=== PATIENT | female | born 1950 | race Hispanic/Latino ===

== ENCOUNTER → 2018-08-28 | Outpatient (CLI) | payer OTHER | END | disposition home or self-care (01) | LOC: RAH 08:34 | PROVIDERS: ATTEND Family Medicine | DX: Z12.31 Encounter for screening mammogram for malignant neoplasm of breast (principal); N64.89 Other specified disorders of breast | CPT/HCPCS: 77067 ==

== ENCOUNTER → 2018-10-01 | Outpatient (CLI) | payer OTHER | END | disposition home or self-care (01) | LOC: RAH 08:41 | PROVIDERS: ATTEND Family Medicine | DX: R92.2 Inconclusive mammogram (principal) | CPT/HCPCS: 76641 ==

== ENCOUNTER → 2018-11-04 | Outpatient (CLI) | payer OTHER | END | disposition home or self-care (01) | LOC: SHCH 08:28 | PROVIDERS: ATTEND Internal Medicine Cardiovascular Disease | DX: I06.1 Rheumatic aortic insufficiency (principal); I50.22 Chronic systolic (congestive) heart failure; Z95.2 Presence of prosthetic heart valve | CPT/HCPCS: 93306 ==

== ENCOUNTER → 2020-11-10 | Outpatient (CLI) | payer OTHER | END | disposition home or self-care (01) | LOC: RAH 14:36 | PROVIDERS: ATTEND Family Medicine | DX: Z12.31 Encounter for screening mammogram for malignant neoplasm of breast (principal); N64.89 Other specified disorders of breast | CPT/HCPCS: 77067 ==

== ENCOUNTER → 2021-10-09 | Outpatient (CLI) | payer OTHER ==
[2021-10-09 12:47] LABS: CREATININE 0.9 mg/dL (0.5-1.5)
== END | disposition home or self-care (01) ==
LOC: LAB 10-08 11:40
PROVIDERS: ATTEND Family Medicine
DX: N63.42 Unspecified lump in left breast, subareolar (principal)
CPT/HCPCS: 36415; 82565; 84520

== ENCOUNTER → 2021-10-16 | Outpatient (CLI) | payer OTHER ==
[~2021-10-16] MED LIST: GADOTERATE MEGLUMINE 10 MMOL/20 ML VIAL IV ONE
== END | disposition home or self-care (01) ==
LOC: RAH 13:49
PROVIDERS: ATTEND Family Medicine
DX: N63.42 Unspecified lump in left breast, subareolar (principal); H70.812 Postauricular fistula, left ear
CPT/HCPCS: 77049; A9575

== ENCOUNTER → 2021-11-26 | Outpatient (CLI) | payer OTHER ==
[2021-11-26 12:28] LABS: INR 1.03 (0.85-1.15); PROTHROMBIN TIME 11.2 SEC (9.6-11.6)
[2021-11-26 12:29] LABS: PARTIAL THROMBOPLASTIN TIME 26.5 SEC (26.3-35.5)
== END | disposition home or self-care (01) ==
LOC: LAB 10:31
PROVIDERS: ATTEND Family Medicine
DX: N63.20 Unspecified lump in the left breast, unspecified quadrant (principal); I65.23 Occlusion and stenosis of bilateral carotid arteries
CPT/HCPCS: 36415; 85610; 85730

== ENCOUNTER → 2022-01-16 | Outpatient (CLI) | payer OTHER ==
[~2022-01-16] MED LIST changes: -GADOTERATE MEGLUMINE 10 MMOL/20 ML VIAL IV ONE; +LIDOCAINE HCL-MPF 2% 5ML VIAL ONE
[2022-01-16 08:34] LABS: INR 1.09 (0.85-1.15); PROTHROMBIN TIME 11.8 SEC (9.6-11.6)
[2022-01-16 08:35] LABS: PARTIAL THROMBOPLASTIN TIME 27.1 SEC (26.3-35.5)
== END | disposition home or self-care (01) ==
LOC: RAH 07:43
PROVIDERS: ATTEND Family Medicine
DX: C50.512 Malignant neoplasm of lower-outer quadrant of left female breast (principal); Z79.01 Long term (current) use of anticoagulants
CPT/HCPCS: 19083; 77065; 85610; 85730; 36415; 88305; 88342; 88341; J3490; A4215 ×3

== ENCOUNTER 2022-02-21 07:55 | Day surgery (SDC) | payer OTHER ==
[2022-02-18 13:51] LABS: BASOPHILS % (AUTO) 0.5 % (0.0-5.0); EOSINOPHILS % (AUTO) 1.4 % (0.0-8.0); HEMATOCRIT 38.9 % (36-48); LYMPHOCYTES % (AUTO) 16.1 % (21.0-51.0); MEAN CORPUSCULAR HEMOGLOBIN 28.9 pg (27.0-33.0); MEAN CORPUSCULAR HGB CONC 33.2 g/dL (32.0-36.0); MEAN CORPUSCULAR VOLUME 87.2 fL (79-99); MONOCYTES % (AUTO) 7.1 % (3.0-13.0); NEUTROPHILS % (AUTO) 74.4 % (40.0-77.0); PLATELET COUNT (AUTO) 163 K/uL (130-400); RED BLOOD CELL COUNT(AUTO) 4.46 MIL/uL (4.00-5.50); WHITE BLOOD COUNT (AUTO) 6.5 K/uL (4.8-10.8)
[2022-02-18 14:03] LABS: CREATININE 0.8 mg/dL (0.5-1.5); POTASSIUM 3.6 mmol/L (3.5-5.1)
[2022-02-18 14:15] LABS: APPEARANCE,URINE CLOUDY (CLEAR); BILIRUBIN,URINE NEGATIVE (NEGATIVE); COLOR,URINE YELLOW (YELLOW); GLUCOSE, URINE (UA) >=1000 mg/dL (NEGATIVE); KETONES,URINE NEGATIVE (NEGATIVE); LEUKOCYTE ESTERASE ,URINE 250 Leu/uL (NEGATIVE); NITRATE,URINE 2+ (NEGATIVE); OCCULT BLOOD,URINE LARGE (NEGATIVE); PROTEIN,URINE 20 mg/dL (NEGATIVE); UROBILINOGEN,URINE 0.2 mg/dL (0.2-1.0)
[2022-02-18 14:18] LABS: B-TYPE NATRIURETIC PEPTIDE 46 pg/mL (0-100)
[2022-02-18 14:20] LABS: PARTIAL THROMBOPLASTIN TIME 44.2 SEC (26.3-35.5)
[2022-02-18 14:20] LABS: BACTERIA,URINE MANY /HPF (None Seen); MUCUS,URINE RARE LPF (None Seen); RBC,URINE 51-100 /HPF (0-1); SQUAMOUS EPITHELIAL CELL,UR RARE /HPF (0-2); WBC,URINE 51-100 /HPF (0-1)
[2022-02-18 14:24] LABS: INR 3.77 (0.85-1.15); PROTHROMBIN TIME 38.1 SEC (9.6-11.6)
[2022-02-19 10:15] VITALS: BP 143/79
[2022-02-21] VITALS (15 sets, daily range): BP systolic 121–186; BP diastolic 52–76
[~2022-02-21] VITALS: Ht 162.6 cm; Wt 73.9 kg
[~2022-02-21 07:55] MED LIST changes: +ATOR40TA69 PO; -LIDOCAINE HCL-MPF 2% 5ML VIAL ONE; +LINA5TAB PO; +METF-444 PO; +METO-408 PO; +WARF-67 PO; +WARF4TAB72 PO
[2022-02-21 09:25] LABS: INR 2.8 (0.85-1.15); PROTHROMBIN TIME 28.8 SEC (9.6-11.6)
[2022-02-21 09:26] LABS: PARTIAL THROMBOPLASTIN TIME 41.1 SEC (26.3-35.5)
[2022-02-21] MEDS ORDERED: 0.9%NACL 1000ML 1,000 ML IV ONE (10:17)
[2022-02-21 14:38] LABS: INR 1.39 (0.85-1.15); PROTHROMBIN TIME 14.9 SEC (9.6-11.6)
[2022-02-21 14:40] LABS: PARTIAL THROMBOPLASTIN TIME 32.4 SEC (26.3-35.5)
[2022-02-21] MEDS ORDERED: NITROGLYCERIN 50MG VIAL ONE (15:51)
[2022-02-21] MEDS ORDERED: NICARDIPINE 25MG INJ IV ONE (15:51)
[2022-02-21] MEDS ORDERED: LIDOCAINE HCL 400MG/20ML VIAL ONE (15:52)
[2022-02-21] MEDS ORDERED: MIDAZOLAM HCL 1 MG/ML 2ML VIAL ONE (15:52)
[2022-02-21] MEDS ORDERED: IOHEXOL 350 MG/ML 100ML INFUS..BTL IV ONE (15:52)
[2022-02-21] MEDS ORDERED: FENTANYL CITRATE PF 50 MCG/1 ML 2ML VIAL ONE (15:52)
[2022-02-21] MEDS ORDERED: HEPARIN 10,000 UNIT/10ML (1,000 UNIT/ML) VIAL ONE (15:52)
[2022-02-21] MEDS ORDERED: IOHEXOL-350 50ML VIAL IV ONE (15:52)
[2022-02-21] MEDS ORDERED: 0.9% NACL 500ML IV.SOLN 500 ML IV SCH (17:30)
[2022-02-21] MEDS ORDERED: WARFARIN SODIUM 2 MG TAB PO SCH (19:30)
[2022-02-22] MEDS ORDERED: WARFARIN SODIUM 2 MG TAB PO SCH (16:00)
[2022-02-28] MEDS ORDERED: WARFARIN SODIUM 2 MG TAB PO SCH (09:00)
== END 2022-02-21 19:55 | disposition home or self-care (01) ==
LOC: DAH 07:55
PROVIDERS: ATTEND Internal Medicine Cardiovascular Disease
DX: R94.39 Abnormal result of other cardiovascular function study (principal); R06.09 Other forms of dyspnea; I20.9 Angina pectoris, unspecified; I25.2 Old myocardial infarction; E11.9 Type 2 diabetes mellitus without complications; E78.5 Hyperlipidemia, unspecified; Z98.890 Other specified postprocedural states; Z79.899 Other long term (current) drug therapy; Z79.01 Long term (current) use of anticoagulants
CPT/HCPCS: 80048; 83880; 85025; 85610 ×3; 85730 ×3; 87077; 87088; 87186; 81001; 36415 ×2; 71045; 93005; 93458; 86850; 86900; 86901; 86156; 82948 ×2; 86870; 86927; C1894 ×2; C1760; P9017; J3010; J3490 ×2; J7030 ×2; J2250; J1644; Q9967; A4215; A4222; A4221; A4663; A4216; A4606; A4223 ×3; 96360; 96361; 99156; 99157

== ENCOUNTER → 2022-10-17 | Outpatient (CLI) | payer OTHER | END | disposition home or self-care (01) | LOC: RAH 12:35 | PROVIDERS: ATTEND Internal Medicine Cardiovascular Disease | DX: I11.0 Hypertensive heart disease with heart failure (principal); I50.22 Chronic systolic (congestive) heart failure; I35.1 Nonrheumatic aortic (valve) insufficiency; E78.5 Hyperlipidemia, unspecified; E11.9 Type 2 diabetes mellitus without complications; Z95.2 Presence of prosthetic heart valve | CPT/HCPCS: 93306; 93356 ==

== ENCOUNTER → 2022-10-22 | Outpatient (CLI) | payer OTHER | END | disposition home or self-care (01) | LOC: LAB 11:25 | PROVIDERS: ATTEND Internal Medicine Cardiovascular Disease | DX: I50.42 Chronic combined systolic (congestive) and diastolic (congestive) heart failure (principal); E78.5 Hyperlipidemia, unspecified | CPT/HCPCS: 36415; 83880 ==

== ENCOUNTER 2024-04-09 17:36 | Inpatient (IN) | payer OTHER, MEDICARE ==
[~2024-04-09] VITALS: Ht 154.9 cm; Wt 64.6 kg
--- NOTE | 2024-04-09 18:06 | ERN ---
ED Note History of Present Illness Stated Complaint: CHEST PAIN Chief Complaint: Chest Pain Time Seen by MD: 17:55 Time Seen by Midlevel: 17:55 Dictation: The patient is a 73-year-old female with a history of mechanical valve on warfarin, breast cancer, diabetes, hypertension who presents to the emergency department with mid chest pain/epigastric pain onset 11:30 a.m. Patient reports pain to be constant associated with diaphoresis. Denies any nausea, vomiting, diarrhea, constipation, fevers. Allergies: Coded Allergies: No Known Drug Allergies (Unverified Allergy, Unknown, 02/20/22) Home Meds Reported Medications Warfarin Sodium (Warfarin Sodium) 4 Mg Tablet, 4 MG PO HS, TAB EVERY Friday02/20/22 Warfarin Sodium (Warfarin Sodium) 2 Mg Tablet, 2 MG PO HS, TAB EVERYDAY EXCEPT Friday02/20/22 Metformin HCl (Metformin HCl) 500 Mg Tablet, 500 MG PO DAILY, TAB 02/20/22 Linagliptin (Tradjenta) 5 Mg Tablet, 5 MG PO DAILY, TAB 02/20/22 Atorvastatin Calcium (LIPITOR) 40 Mg Tablet, 40 MG PO DAILY, TAB 02/20/22 Metoprolol Succinate (Metoprolol Succinate) 25 Mg Tab.er.24h, 25 MG PO DAILY, TAB 02/20/22 Past Medical History Past Medical History: Diabetes-Type II, High Cholesterol, Hypertension Surgical History: Other Surgical History Other: HEART VALVE, BILATERAL MASTECTOMY RN Note Reviewed/Agreed w/PFSH: Yes Review of System Dictation Constitutional: Negative for fever,chills, and weight loss Eyes: Negative for injury, pain,redness, and discharge ENT: Negative for injury,pain or swelling Cardiovascular: Negative for chest pain, palpitations, and edema Respiratory: Negative for shortness of breath, cough, and wheezing, Abdomen/GI: Negative for nausea, vomiting, diarrhea, and constipation positive for abdominal pain Back: Negative for injury and pain : Negative for injury, bleeding and discharge MS/Extremity: Negative for injury and deformity Skin: Negative for rash, and discoloration Neuro: Negative for headache, weakness, numbness, tingling, and seizure Psych: Negative for suicide ideation, homicidal ideation, and hallucinations Initial Vital Sign VS Vital Signs Date Time Temp Pulse Resp B/P (MAP) Pulse Ox O2 Delivery O2 Flow Rate FiO2 04/09/24 17:36 98.6 85 20 183/80 99 Room Air 0 04/09/24 21:43 21 Physical Exam Dictation Vital Signs reviewed General Appearance: Alert, oriented x 3, no acute distress, well developed, nourished. Head and Face: non-traumatic. Eyes: PERRL, pink conjunctivas, eyelid no trauma, anterior chamber with arcus senilis. Ears: Pinnas intact and no signs of trauma or erythema ear canals clear and no discharge TM no erythema Nose: No discharge, no bleeding. Oropharynx: Mouth normal, tongue pink. pharynx clear,no erythema, tonsils no exudates, no abscesses noted, mucous membrane moist Neck: Supple, non-tender, no thyromegaly, no masses, no JVD, no bruits Breast:Deferred Chest:No tenderness, no crepitus, no paradoxical movement, no retractions Lungs:Clear, well-ventilated, symmetric, no rales, no wheezing, no rhonchi, no stridor, good breath sounds bilaterally Heart: Regular rate, regular rhythm, no murmur, no gallops Vascular: no peripheral edema, Abdomen: Soft, positive bowel sounds, nondistended, no guarding, nontender, no rebound, no masses no hepatomegaly, no splenomegaly, no Hernandez's sign, no hernias. Rectal: Deferred Genital: Deferred Neurological: Normal speech, motor function intact, sensory function intact Musculoskeletal: Neck nontender, full range of motion, back nontender, full range of motion, Extremities: nontender, full range of motion Skin: Color pink, dry, no turgor, no rash, no lacerations, no abrasions, no contusions. Lymphatic: Deferred Results (Laboratory/Radiology) Laboratory/Radiology Laboratory Tests Test 04/10/24 06:47 04/10/24 07:10 04/10/24 11:11 04/10/24 14:10 Whole Blood Glucose 141 MG/DL (70-110) H 155 MG/DL (70-110) H White Blood Count 9.4 K/uL (4.8-10.8) Red Blood Count 3.72 MIL/uL (4.00-5.50) L Hemoglobin 10.7 g/dL (12.0-16.0) L Hematocrit 32.4 % (36-48) L Mean Corpuscular Volume 87.1 fL (79-99) Mean Corpuscular Hemoglobin 28.8 pg (27.0-33.0) Mean Corpuscular Hemoglobin Concent 33.0 g/dL (32.0-36.0) Red Cell Distribution Width 14.4 % (11.0-15.5) Platelet Count 171 K/uL (130-400) Mean Platelet Volume 11.7 fL (7.5-10.5) H Immature Granulocyte % (Auto) 0.4 % (0-1) Neutrophils (%) (Auto) 81.4 % (40.0-77.0) H Lymphocytes (%) (Auto) 11.4 % (21.0-51.0) L Monocytes (%) (Auto) 5.2 % (3.0-13.0) Eosinophils (%) (Auto) 1.2 % (0.0-8.0) Basophils (%) (Auto) 0.4 % (0.0-5.0) Neutrophils # (Auto) 7.6 K/uL (1.8-7.7) Lymphocytes # (Auto) 1.1 K/uL (1.0-4.8) Monocytes # (Auto) 0.5 K/uL (0.1-1.0) Eosinophils # (Auto) 0.11 K/uL (0.00-0.70) Basophils # (Auto) 0.04 K/uL (0.00-0.20) Absolute Immature Granulocyte (auto 0.04 K/uL (0-1) Nucleated Red Blood Cells 0.0 % (0.0-0.19) Activated Partial Thromboplast Time 39.6 SEC (26.3-35.5) H Sodium Level 147 mmol/L (136-145) H Potassium Level 3.0 mmol/L (3.5-5.1) *L Chloride Level 110 mmol/L (101-111) Carbon Dioxide Level 29 mmol/L (21-32) Blood Urea Nitrogen 8 mg/dL (7-18) Creatinine 0.9 mg/dL (0.5-1.0) Glomerular Filtration Rate Calc 68 mL/min (>90) Random Glucose 153 mg/dL (70-105) #H Total Calcium 7.9 mg/dL (8.5-10.1) L Phosphorus Level 2.9 mg/dL (2.5-4.9) Magnesium Level 1.50 mg/dL (1.80-2.40) L Total Bilirubin 0.8 mg/dL (0.2-1.0) # Aspartate Amino Transf (AST/SGOT) 67 U/L (10-37) H Alanine Aminotransferase (ALT/SGPT) 50 U/L (12-78) # Alkaline Phosphatase 114 U/L (50-136) Troponin I High Sensitivity 11 ng/L (4-50) Total Protein 6.1 g/dL (6.0-8.3) Albumin 3.2 g/dL (3.5-5.0) L Lipase 180 U/L (16-77) H 161 U/L (16-77) H Thyroid Stimulating Hormone (TSH) 0.64 uIU/mL (0.36-3.74) Test 04/10/24 16:25 04/10/24 20:19 04/11/24 02:14 04/11/24 06:33 Whole Blood Glucose 151 MG/DL (70-110) H 156 MG/DL (70-110) H Activated Partial Thromboplast Time 114.2 SEC (26.3-35.5) 110.6 SEC (26.3-35.5) *H Magnesium Level 2.30 mg/dL (1.80-2.40) White Blood Count 7.2 K/uL (4.8-10.8) Red Blood Count 3.85 MIL/uL (4.00-5.50) L Hemoglobin 11.4 g/dL (12.0-16.0) L Hematocrit 33.6 % (36-48) L Mean Corpuscular Volume 87.3 fL (79-99) Mean Corpuscular Hemoglobin 29.6 pg (27.0-33.0) Mean Corpuscular Hemoglobin Concent 33.9 g/dL (32.0-36.0) Red Cell Distribution Width 14.5 % (11.0-15.5) Platelet Count 161 K/uL (130-400) Mean Platelet Volume 11.2 fL (7.5-10.5) H Immature Granulocyte % (Auto) 0.3 % (0-1) Neutrophils (%) (Auto) 70.4 % (40.0-77.0) Lymphocytes (%) (Auto) 18.3 % (21.0-51.0) L Monocytes (%) (Auto) 6.3 % (3.0-13.0) Eosinophils (%) (Auto) 3.9 % (0.0-8.0) Basophils (%) (Auto) 0.8 % (0.0-5.0) Neutrophils # (Auto) 5.0 K/uL (1.8-7.7) Lymphocytes # (Auto) 1.3 K/uL (1.0-4.8) Monocytes # (Auto) 0.5 K/uL (0.1-1.0) Eosinophils # (Auto) 0.28 K/uL (0.00-0.70) Basophils # (Auto) 0.06 K/uL (0.00-0.20) Absolute Immature Granulocyte (auto 0.02 K/uL (0-1) Nucleated Red Blood Cells 0.0 % (0.0-0.19) Sodium Level 145 mmol/L (136-145) Potassium Level 4.0 mmol/L (3.5-5.1) Chloride Level 113 mmol/L (101-111) H Carbon Dioxide Level 26 mmol/L (21-32) Blood Urea Nitrogen 6 mg/dL (7-18) L Creatinine 0.9 mg/dL (0.5-1.0) Glomerular Filtration Rate Calc 68 mL/min (>90) Random Glucose 144 mg/dL (70-105) H Total Calcium 7.8 mg/dL (8.5-10.1) L Total Bilirubin 0.9 mg/dL (0.2-1.0) Aspartate Amino Transf (AST/SGOT) 35 U/L (10-37) Alanine Aminotransferase (ALT/SGPT) 37 U/L (12-78) # Alkaline Phosphatase 101 U/L (50-136) Total Protein 6.1 g/dL (6.0-8.3) Albumin 3.2 g/dL (3.5-5.0) L Lipase 128 U/L (16-77) H Test 04/11/24 08:07 04/11/24 10:55 04/11/24 14:00 04/11/24 15:22 Activated Partial Thromboplast Time 70.6 SEC (26.3-35.5) #H 66.1 SEC (26.3-35.5) H Whole Blood Glucose 145 MG/DL (70-110) H 151 MG/DL (70-110) H Prothrombin Time 20.4 SEC (9.6-11.6) H Prothromb Time International Ratio 1.95 (0.85-1.15) H Test 04/11/24 20:10 04/11/24 20:28 04/12/24 02:03 04/12/24 05:57 Whole Blood Glucose 156 MG/DL (70-110) H 147 MG/DL (70-110) H Activated Partial Thromboplast Time 55.7 SEC (26.3-35.5) H 36.2 SEC (26.3-35.5) #H White Blood Count 8.0 K/uL (4.8-10.8) Red Blood Count 3.82 MIL/uL (4.00-5.50) L Hemoglobin 11.2 g/dL (12.0-16.0) L Hematocrit 33.1 % (36-48) L Mean Corpuscular Volume 86.6 fL (79-99) Mean Corpuscular Hemoglobin 29.3 pg (27.0-33.0) Mean Corpuscular Hemoglobin Concent 33.8 g/dL (32.0-36.0) Red Cell Distribution Width 14.3 % (11.0-15.5) Platelet Count 159 K/uL (130-400) Mean Platelet Volume 11.2 fL (7.5-10.5) H Immature Granulocyte % (Auto) 0.2 % (0-1) Neutrophils (%) (Auto) 72.1 % (40.0-77.0) Lymphocytes (%) (Auto) 16.2 % (21.0-51.0) L Monocytes (%) (Auto) 6.7 % (3.0-13.0) Eosinophils (%) (Auto) 4.2 % (0.0-8.0) Basophils (%) (Auto) 0.6 % (0.0-5.0) Neutrophils # (Auto) 5.8 K/uL (1.8-7.7) Lymphocytes # (Auto) 1.3 K/uL (1.0-4.8) Monocytes # (Auto) 0.5 K/uL (0.1-1.0) Eosinophils # (Auto) 0.34 K/uL (0.00-0.70) Basophils # (Auto) 0.05 K/uL (0.00-0.20) Absolute Immature Granulocyte (auto 0.02 K/uL (0-1) Nucleated Red Blood Cells 0.0 % (0.0-0.19) Sodium Level 146 mmol/L (136-145) H Potassium Level 3.2 mmol/L (3.5-5.1) L Chloride Level 111 mmol/L (101-111) Carbon Dioxide Level 27 mmol/L (21-32) Blood Urea Nitrogen 6 mg/dL (7-18) L Creatinine 0.9 mg/dL (0.5-1.0) Glomerular Filtration Rate Calc 68 mL/min (>90) Random Glucose 135 mg/dL (70-105) H Total Calcium 7.9 mg/dL (8.5-10.1) L Total Bilirubin 1.0 mg/dL (0.2-1.0) Aspartate Amino Transf (AST/SGOT) 25 U/L (10-37) Alanine Aminotransferase (ALT/SGPT) 26 U/L (12-78) # Alkaline Phosphatase 86 U/L (50-136) Total Protein 6.1 g/dL (6.0-8.3) Albumin 3.0 g/dL (3.5-5.0) L Test 04/12/24 07:53 04/12/24 11:23 04/12/24 14:29 04/12/24 16:25 Prothrombin Time 17.5 SEC (9.6-11.6) H Prothromb Time International Ratio 1.64 (0.85-1.15) H Activated Partial Thromboplast Time 31.9 SEC (26.3-35.5) 42.9 SEC (26.3-35.5) #H Whole Blood Glucose 288 MG/DL (70-110) #H 189 MG/DL (70-110) H Test 04/12/24 19:43 04/12/24 20:17 Whole Blood Glucose 208 MG/DL (70-110) H Prothrombin Time 16.0 SEC (9.6-11.6) H Prothromb Time International Ratio 1.49 (0.85-1.15) H Activated Partial Thromboplast Time 48.7 SEC (26.3-35.5) H REASON: epigastric pain, elevated lfts ORDERING PHYSICIAN: YAZ BURNETTE PROCEDURE: ABDRUQLTD - US ABDOMINAL RUQ\LTD US ABDOMINAL RUQ\E\LTD HISTORY: epigastric pain, elevated lfts TECHNIQUE: US ABDOMINAL RUQ\E\LTD. FINDINGS: LIVER: The liver demonstrates normal echogenicity without focal lesions. GALLBLADDER: Small gallstones are seen. There is no evidence of gallbladder wall thickening. CBD: Measures up to 0.6cm. PANCREAS: Prominent main pancreatic duct measuring 4 mm. RIGHT KIDNEY: measures 11cm in length. No hydronephrosis or calculi. IMPRESSION: Cholelithiasis. Upper normal CBD. Prominent main pancreatic duct measuring 0.4 cm. REASON: CHEST PAIN ORDERING PHYSICIAN: FÁTIMA SIERRA MD PROCEDURE: CXR1VW - CHEST 1VW Exam Type: CHEST 1VW Clinical Information: CHEST PAIN Comparison: None Findings: Right MediPort catheter is seen in place. There is no pneumothorax. The lungs are clear of infiltrates. The heart is enlarged. Bony and soft tissue structures of the chest wall are unremarkable. IMPRESSION: Cardiomegaly. Clear lungs. Labs Reviewed?: Yes EKG: (+) rhythm (Sinus rhythm) EKG Comment: EKG 04/09/2024 1738 ventricular rate 71, regular rate and rhythm, normal sinus rhythm, no STEMI ED Course ED Course Orders Procedure Category Date Status Time Zosyn 3.375gm+Ns 50ml PHA 04/10/24 Complete (Zosyn 3.375gm+Ns 09:00 0.9%Nacl 50ml (Ns PHA 04/10/24 Complete 50ml) 09:00 General Surgery CONPHYSVC 04/10/24 Transmitted Consult 09:04 Initiate Npo ROSA 04/10/24 Complete Hypokalemia Sary 09:58 Potassium Chloride PHA 04/10/24 Complete 20meq/100ml ([place] 10:00 Notify Physician If CPOE 04/10/24 Transmitted There Is 09:58 Notify Md On The Next CPOE 04/10/24 Transmitted 09:58 Notify Md On The CPOE 04/10/24 Transmitted Next(Cont.) 09:58 Magnesium 2gm Premix PHA 04/10/24 In Process 50ml (Magnesium 2gm 10:00 Clear Liquid DIET 04/10/24 Complete Lunch Initiate Po ROSA 04/10/24 In Process Hypokalemia Protoc 10:11 Potassium Chloride PHA 04/10/24 In Process 20meq/100ml ([place] 10:30 Potassium Chl 10% PHA 04/10/24 In Process Elixir 20meq (Kcl 10% 10:30 Potassium Chloride PHA 04/10/24 In Process 20meq Er (K-Dur/Klor- 10:30 Cbc With Differential LAB 04/11/24 Complete 04:00 Cbc With Differential LAB 04/12/24 Complete 04:00 Cbc With Differential LAB 04/13/24 In Process 04:00 Comprehensive LAB 04/11/24 Complete Metabolic Panel 04:00 Comprehensive LAB 04/12/24 Complete Metabolic Panel 04:00 Comprehensive LAB 04/13/24 In Process Metabolic Panel 04:00 Initiate Heparin ROSA 04/10/24 In Process Treatment Pro 10:32 Partial LAB 04/10/24 Complete Thromboplastin Time 10:32 Heparin 25,000 PHA 04/10/24 In Process Units/250ml D5w 11:30 Heparin Protocol CPOE 04/10/24 Transmitted Monitoring 10:32 *Nursing CPOE 04/10/24 Transmitted Communication: 10:33 Change Admit CM 04/10/24 Transmitted Inpatient Status 11:42 Mrcp(Abdwo)Cholangiopancreatog MRI 04/10/24 Resulted 10:08 Partial LAB 04/10/24 Complete Thromboplastin Time 20:00 Partial LAB 04/11/24 Complete Thromboplastin Time 02:00 Partial LAB 04/11/24 Complete Thromboplastin Time 08:00 Partial LAB 04/11/24 Complete Thromboplastin Time 14:00 Partial LAB 04/11/24 Complete Thromboplastin Time 20:00 Partial LAB 04/12/24 Complete Thromboplastin Time 02:00 Partial LAB 04/12/24 Complete Thromboplastin Time 08:00 Partial LAB 04/12/24 Complete Thromboplastin Time 14:00 Magnesium LAB 04/10/24 Complete 19:44 Zosyn 3.375gm+Ns 50ml PHA 04/11/24 Complete (Zosyn 3.375gm+Ns 14:00 Prothrombin Time With LAB 04/11/24 Complete INR 14:00 Cardiology Consult CONPHYSVC 04/11/24 Transmitted 14:47 Pt And Ptt LAB 04/12/24 Complete 20:30 Heart Healthy Diet DIET 04/12/24 Transmitted Breakfast Prothrombin Time With LAB 04/12/24 Complete INR 07:53 *Nursing CPOE 04/12/24 Transmitted Communication: 13:19 Levofloxacin 500 PHA 04/12/24 Complete Mg/D5w 100 Ml 13:30 Levofloxacin 250 PHA 04/13/24 In Process Mg/D5w 50ml (Levaquin 14:00 Prothrombin Time With LAB 04/13/24 In Process INR 06:00 Npo After Midnight ROSA 04/12/24 Transmitted 17:11 *Nursing CPOE 04/12/24 Transmitted Communication: 17:11 *Nursing CPOE 04/12/24 Transmitted Communication: 17:11 Vital Signs Date Time Temp Pulse Resp B/P (MAP) Pulse Ox O2 Delivery O2 Flow Rate FiO2 04/13/24 03:47 98.2 75 19 136/67 99 Room Air 04/13/24 01:51 100 Room Air* 0 04/13/24 00:00 98.8 84 19 148/82 98 Room Air 04/12/24 20:00 98.4 92 19 138/65 97 Room Air 04/12/24 16:00 97.9 83 16 147/78 94 Room Air 04/12/24 12:00 98.8 89 16 132/61 98 Room Air 04/12/24 08:00 98.2 83 16 130/56 100 Room Air 04/12/24 07:50 100 Room Air* 0 04/12/24 03:24 98.4 76 16 132/58 99 Room Air 04/11/24 21:20 98 Room Air* 0 04/11/24 20:00 98.2 79 17 138/60 98 Room Air 04/11/24 16:00 98.6 72 16 136/67 97 Room Air 04/11/24 11:54 98.1 68 16 151/60 99 Room Air 04/11/24 08:00 98.2 85 16 144/79 99 Room Air 04/11/24 07:50 99 Room Air* 0 04/11/24 06:34 98.1 66 18 127/64 100 Room Air 04/11/24 05:00 64 18 145/64 96 Room Air 04/11/24 04:00 60 20 119/58 96 Room Air 04/11/24 03:00 71 20 141/67 96 Room Air 04/11/24 02:00 75 18 135/76 96 Room Air 04/11/24 00:00 70 18 132/70 96 Room Air 04/10/24 22:00 71 18 125/62 97 Room Air 04/10/24 20:00 98.8 69 18 135/61 96 Room Air 04/10/24 20:00 96 Room Air* 0 21 04/10/24 19:34 70 15 141/68 98 Room Air 04/10/24 19:00 70 15 141/68 98 Room Air 04/10/24 18:14 99.0 68 19 133/68 97 Room Air 04/10/24 08:24 98 Room Air* 0 21 04/10/24 07:11 72 18 135/57 98 Room Air 04/10/24 06:45 70 18 98 Room Air 04/10/24 06:30 78 18 97 Room Air 04/10/24 06:15 76 14 97 Room Air 04/10/24 06:00 98.2 76 11 151/74 100 Room Air 04/10/24 05:15 98.1 68 20 131/59 95 Room Air* 0 21 Medical Decision Making MDM MDM: The patient is a 73-year-old female with a history of mechanical valve on w arfarin, breast cancer, diabetes, hypertension who presents to the emergency department with mid chest pain/epigastric pain onset 11:30 a.m. Patient reports pain to be constant associated with diaphoresis. Denies any nausea, vomiting, diarrhea, constipation, fevers. CBC showed no leukocytosis, mild normocytic anemia, chemistry showed elevated blood glucose, negative troponin, slightly elevated AST, elevated lipase, negative triglycerides, patient with a INR of four. No active bleeding. Differential diagnosis: Electrolyte imbalance, ACS, cholecystitis, dehydration, gastritis, pancreatitis Comorbidities: Tests considered and not ordered secondary to shared decision making include: none Previous outside records reviewed: none Risk of complication and/or morbidity or mortality of patient management: The patient meets criteria for admission. Need for emergency major/minor surgery: No There are no social concerns with this patient. I independently interpreted the tests I ordered (labs, urinalysis, etc.). I discussed the case with the hospitalist for admission. I discussed the case with the following specialists: none. Historian: pateint. I independently interpreted imaging studies and EKGs that I ordered (US, CT, XR, EKG, etc.). External chart review: none. Medical management and examination interpretation discussions were had by me with other qualified healthcare professionals as indicated for the patient's care. DX & DISP Disposition: Inpatient Decision to Admit Date: Apr 09, 2024 Decision to Admit Time: 22:51 Departure Impression: Primary Impression: Acute pancreatitis Additional Impressions: Hyperglycemia, Elevated INR, Abdominal pain, Cholelithiasis Condition: Stable Referrals: NEHA MCMAHAN DO (PCP) I have reviewed the case, and I agree with, Diagnosis and Plan ATTESTATION BY PHYSICIAN I PERFORMED THE SUBSTANTIVE PORTION OF THE VISIT. I HAVE REVIEWED AND PERSONALLY MADE AND APPROVED THE MANAGEMENT PLAN THAT IS DOCUMENTED IN THE NOTE BY MYSELF FOR THE A PP. I ACKNOWLEDGED FOR RESPONSIBILITY FOR THE PATIENT'S MANAGEMENT PLAN. YAZ BURNETTE Apr 09, 2024 18:06 LINCOLN CAZARES MD Apr 13, 2024 04:44
--- NOTE | 2024-04-09 18:22 | EKG ---
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
--- NOTE | 2024-04-09 18:32 | HMCIMG ---
Exam Type: CHEST 1VW Clinical Information: CHEST PAIN Comparison: None Findings: Right MediPort catheter is seen in place. There is no pneumothorax. The lungs are clear of infiltrates. The heart is enlarged. Bony and soft tissue structures of the chest wall are unremarkable. IMPRESSION: Cardiomegaly. Clear lungs.
[2024-04-09 18:43] LABS: BASOPHILS # (AUTO) 0.05 K/uL (0.00-0.20); BASOPHILS % (AUTO) 0.5 % (0.0-5.0); EOSINOPHILS # (AUTO) 0.08 K/uL (0.00-0.70); EOSINOPHILS % (AUTO) 0.8 % (0.0-8.0); IMMATURE GRANULOCYTE ABSOLUTE 0.05 K/uL (0-1); LYMPHOCYTES # (AUTO) 0.8 K/uL (1.0-4.8); LYMPHOCYTES % (AUTO) 7.7 % (21.0-51.0); MEAN CORPUSCULAR HEMOGLOBIN 28.5 pg (27.0-33.0); MEAN CORPUSCULAR HGB CONC 32.8 g/dL (32.0-36.0); MONOCYTES # (AUTO) 0.4 K/uL (0.1-1.0); MONOCYTES % (AUTO) 3.7 % (3.0-13.0); NEUTROPHILS # (AUTO) 9.2 K/uL (1.8-7.7); NEUTROPHILS % (AUTO) 86.8 % (40.0-77.0); PLATELET COUNT (AUTO) 193 K/uL (130-400); RED BLOOD CELL COUNT(AUTO) 4.14 MIL/uL (4.00-5.50); RED CELL DISTRIBUTION WIDTH 14.3 % (11.0-15.5); WHITE BLOOD COUNT (AUTO) 10.5 K/uL (4.8-10.8)
[2024-04-09 18:52] LABS: POTASSIUM 3.7 mmol/L (3.5-5.1)
[2024-04-09 18:56] LABS: PARTIAL THROMBOPLASTIN TIME 38.2 SEC (26.3-35.5)
[2024-04-09 19:16] LABS: ALBUMIN 3.9 g/dL (3.5-5.0); B-TYPE NATRIURETIC PEPTIDE 131 pg/mL (0-100); BILIRUBIN,DIRECT 0.4 mg/dL (0.0-0.3); BILIRUBIN,TOTAL 1.3 mg/dL (0.2-1.0); TOTAL PROTEIN, SERUM 7.1 g/dL (6.0-8.3)
[2024-04-09 19:27] LABS: INR 4.09 (0.85-1.15); PROTHROMBIN TIME 39.8 SEC (9.6-11.6)
--- NOTE | 2024-04-09 21:13 | HMCIMG ---
US ABDOMINAL RUQ\E\LTD HISTORY: epigastric pain, elevated lfts TECHNIQUE: US ABDOMINAL RUQ\E\LTD. FINDINGS: LIVER: The liver demonstrates normal echogenicity without focal lesions. GALLBLADDER: Small gallstones are seen. There is no evidence of gallbladder wall thickening. CBD: Measures up to 0.6cm. PANCREAS: Prominent main pancreatic duct measuring 4 mm. RIGHT KIDNEY: measures 11cm in length. No hydronephrosis or calculi. IMPRESSION: Cholelithiasis. Upper normal CBD. Prominent main pancreatic duct measuring 0.4 cm.
[2024-04-09] MEDS: ASPIRIN 325MG TAB PO ONE (21:26)
[2024-04-09] MEDS: PANTOPrazole 40 MG/VIAL IVP ONE (21:26)
[2024-04-09] MEDS: NITROGLYCERIN 1GM OINT 1 INCH/1GM TD ONE (21:27)
[2024-04-09] MEDS: INSULIN humuLIN R 100 UNIT/ML 3ML IV ONE (21:29)
[2024-04-09] MEDS: 0.9%NACL 1000ML 1,000 ML IV SCH (23:30)
[2024-04-09] MEDS ORDERED: LACTULOSE 20 GM/30 ML UDCUP PO PRN (23:30)
[2024-04-09] MEDS ORDERED: hydrALAZine 20MG/ML VIAL IV PRN (23:30)
[2024-04-09] MEDS ORDERED: acetaMINOPHEN 650 MG SUPPOSITORY RC PRN (23:30)
[2024-04-09 23:59] LABS: APPEARANCE,URINE CLOUDY (CLEAR); BILIRUBIN,URINE NEGATIVE (NEGATIVE); COLOR,URINE YELLOW (YELLOW); GLUCOSE, URINE (UA) 300 mg/dL (NEGATIVE); KETONES,URINE NEGATIVE (NEGATIVE); LEUKOCYTE ESTERASE ,URINE 500 Leu/uL (NEGATIVE); NITRATE,URINE NEGATIVE (NEGATIVE); OCCULT BLOOD,URINE NEGATIVE (NEGATIVE); PH,URINE 6.5 (5.0-8.0); PROTEIN,URINE 20 mg/dL (NEGATIVE); UROBILINOGEN,URINE 3 mg/dL (0.2-1.0)
[2024-04-10] VITALS (11 sets, daily range): BP systolic 125–151; BP diastolic 57–74; PULSE 68–78; RESP 11–19; TEMP 98.2–98.9; O2SAT 96–98
[2024-04-10 00:02] LABS: ADD UA MICROSCOPIC YES
[2024-04-10 00:04] LABS: BACTERIA,URINE MANY /HPF (None Seen); MUCUS,URINE RARE LPF (None Seen); SQUAMOUS EPITHELIAL CELL,UR MOD /HPF (0-2); WBC,URINE 51-100 /HPF (0-1)
[2024-04-10 07:27] LABS: BASOPHILS # (AUTO) 0.04 K/uL (0.00-0.20); BASOPHILS % (AUTO) 0.4 % (0.0-5.0); EOSINOPHILS # (AUTO) 0.11 K/uL (0.00-0.70); EOSINOPHILS % (AUTO) 1.2 % (0.0-8.0); HEMATOCRIT 32.4 % (36-48); IMMATURE GRANULOCYTE ABSOLUTE 0.04 K/uL (0-1); LYMPHOCYTES # (AUTO) 1.1 K/uL (1.0-4.8); LYMPHOCYTES % (AUTO) 11.4 % (21.0-51.0); MEAN CORPUSCULAR HEMOGLOBIN 28.8 pg (27.0-33.0); MEAN CORPUSCULAR VOLUME 87.1 fL (79-99); MONOCYTES # (AUTO) 0.5 K/uL (0.1-1.0); MONOCYTES % (AUTO) 5.2 % (3.0-13.0); NEUTROPHILS # (AUTO) 7.6 K/uL (1.8-7.7); NEUTROPHILS % (AUTO) 81.4 % (40.0-77.0); PLATELET COUNT (AUTO) 171 K/uL (130-400); RED BLOOD CELL COUNT(AUTO) 3.72 MIL/uL (4.00-5.50); RED CELL DISTRIBUTION WIDTH 14.4 % (11.0-15.5); WHITE BLOOD COUNT (AUTO) 9.4 K/uL (4.8-10.8)
[2024-04-10] MEDS: INSULIN humuLIN R 100 UNIT/ML 3ML SQ SCH (07:30)
[2024-04-10 08:01] LABS: ALBUMIN 3.2 g/dL (3.5-5.0); BILIRUBIN,TOTAL 0.8 mg/dL (0.2-1.0); CREATININE 0.9 mg/dL (0.5-1.0); MAGNESIUM 1.5 mg/dL (1.80-2.40); PHOSPHORUS 2.9 mg/dL (2.5-4.9); THYROID STIMULATING HORMONE 0.64 uIU/mL (0.36-3.74); TOTAL PROTEIN, SERUM 6.1 g/dL (6.0-8.3)
[2024-04-10] MEDS ORDERED: 0.9%NACL 50ML IV SCH (09:00)
[2024-04-10] MEDS: ZOSYN 3.375GM +NS 50ML IVPB SCH (09:32)
[2024-04-10] MEDS ORDERED: PoTASSium chloRIDE 20MEQ/100ML 100 ML IV PRN ×2 (10:00→10:30)
--- NOTE | 2024-04-10 10:47 | HP ---
[facility] HISTORY & PHYSICAL Date Patient Seen: Apr 10, 2024 Time of Visit: 10:41 Supervising Physician: Dr. Juve Cooper Primary Care Physician: Dr. Kalli Navas- [facility] Outpatient Specialists: Jamie Shaver, Dr. Summers Inpatient Consults: Dr. Hays PROBLEM LIST: Acute abdominal pain secondary to below Acute cholelithiasis Acute pancreatitis secondary to biliary stones Acute transaminitis secondary to above Acute complicated cystitis Supra therapeutic INR Hypertension Hypokalemia Hyperglycemia Hypomagnesemia History of diabetes mellitus, hyperlipidemia, hypertension, Mechanical valve surgery, bilateral mastectomy HPI: This is a 73-year-old female with past medical history of mechanical valve surgeries on Coumadin, bilateral mastectomy, diabetes mellitus, hypertension, and hyperlipidemia who came to the hospital with complaint of abdominal pain. According to the patient, she has been having this symptom for two days. Her pain was described as dull rate 3/10, unrelieved with tylenol. She had no vomiting. She denies any diarrhea. In ED patient was found to have cholelithiasis with common bile duct mildly dilated. Liver function was elevated and she has elevated lipase as well. Her urine analysis with WBC of 50 to 100 very high leukocyte esterase and many bacteria. PAST MEDICAL HX: Diabetes mellitus mellitus Hyperlipidemia Hypertension PAST SURGICAL HX: Mechanical valve surgery Bilateral mastectomy SOCIAL HISTORY: Denies tobacco abuse Denies alcohol abuse Denies illicit drug use Coded Allergies: No Known Drug Allergies (Unverified Allergy, Unknown, 02/20/22) REVIEW OF SYSTEMS: General: No Fever, No Chills, No Night Sweats, No Fatigue, No Malaise, No Appetite HEENT: No Head Aches, No Visual Changes, No Eye Pain, No Ear Pain, No Dysphasia, No Sinus Congestion, No Post Nasal Drip, No Sore Throat Pulmonary: No Dyspnea; No Cough, No Pleuritic Chest Pain Cardiovascular: No: Chest Pain, Palpitations, Orthopnea, Paroxysmal Noc. Dyspnea, Edema, Lt Headedness Gastrointestinal: No: Nausea, Vomiting, yes Abdominal Pain,no Diarrhea, Constipation, Melena, Hematochezia Genitourinary: No Dysuria, No Frequency, No Incontinence, No Hematuria, No Retention Musculoskeletal: No: other, neck pain, shoulder pain, arm pain, back pain, hand pain, leg pain, foot pain Skin: No Urticaria, No Rash Neurological: No: Weakness, Numbness, Incoordination, Change in speech, Confusion, Seizures PHYSICAL EXAM: GENERAL: alert, weak, awake oriented x 3 HEENT: EOMI, Sclera non icteric, moist mucosa NECK: Supple, no JVD, trachea midline LUNGS: Clear breath sounds bilaterally. No wheezes HEART: Regular rate and rhythm. Normal S1 and S2, without murmurs ABD: Abdomen soft, tender to touch to right upper quadrant. Bowel sounds present EXT: No clubbing cyanosis or edema NEURO: Alert and oriented to person, follows commands Vital Signs (last 8hr) Date Time Temp Pulse Resp B/P (MAP) Pulse Ox O2 Delivery O2 Flow Rate FiO2 04/10/24 08:24 98 Room Air* 0 21 04/10/24 07:11 72 18 135/57 98 Room Air 04/10/24 06:45 70 18 98 Room Air 04/10/24 06:30 78 18 97 Room Air 04/10/24 06:15 76 14 97 Room Air 04/10/24 06:00 98.2 76 11 151/74 100 Room Air 04/10/24 05:15 98.1 68 20 131/59 95 Room Air* 0 21 LABS: Hematology Labs: Test 04/10/24 07:10 04/09/24 17:48 Range/Units White Blood Count 9.4 4.8-10.8 K/uL Red Blood Count 3.72 L 4.00-5.50 MIL/uL Hemoglobin 10.7 L 12.0-16.0 g/dL Hematocrit 32.4 L 36-48 % Mean Corpuscular Volume 87.1 79-99 fL Mean Corpuscular Hemoglobin 28.8 27.0-33.0 pg Mean Corpuscular Hemoglobin Concent 33.0 32.0-36.0 g/dL Red Cell Distribution Width 14.4 11.0-15.5 % Platelet Count 171 130-400 K/uL Mean Platelet Volume 11.7 H 7.5-10.5 fL Immature Granulocyte % (Auto) 0.4 0-1 % Neutrophils (%) (Auto) 81.4 H 40.0-77.0 % Lymphocytes (%) (Auto) 11.4 L 21.0-51.0 % Monocytes (%) (Auto) 5.2 3.0-13.0 % Eosinophils (%) (Auto) 1.2 0.0-8.0 % Basophils (%) (Auto) 0.4 0.0-5.0 % Neutrophils # (Auto) 7.6 1.8-7.7 K/uL Lymphocytes # (Auto) 1.1 1.0-4.8 K/uL Monocytes # (Auto) 0.5 0.1-1.0 K/uL Eosinophils # (Auto) 0.11 0.00-0.70 K/uL Basophils # (Auto) 0.04 0.00-0.20 K/uL Absolute Immature Granulocyte (auto 0.04 0-1 K/uL Nucleated Red Blood Cells 0.0 0.0-0.19 % White Cell Morphology Comment See comments Chemistry Labs: Test 04/10/24 07:10 04/09/24 17:48 Range/Units Sodium Level 147 H 136-145 mmol/L Potassium Level 3.0 *L 3.5-5.1 mmol/L Chloride Level 110 101-111 mmol/L Carbon Dioxide Level 29 21-32 mmol/L Blood Urea Nitrogen 8 7-18 mg/dL Creatinine 0.9 0.5-1.0 mg/dL Glomerular Filtration Rate Calc 68 >90 mL/min Random Glucose 153 #H 70-105 mg/dL Total Calcium 7.9 L 8.5-10.1 mg/dL Phosphorus Level 2.9 2.5-4.9 mg/dL Magnesium Level 1.50 L 1.80-2.40 mg/dL Total Bilirubin 0.8 # 0.2-1.0 mg/dL Aspartate Amino Transf (AST/SGOT) 67 H 10-37 U/L Alanine Aminotransferase (ALT/SGPT) 50 # 12-78 U/L Alkaline Phosphatase 114 50-136 U/L Troponin I High Sensitivity 11 4-50 ng/L Total Protein 6.1 6.0-8.3 g/dL Albumin 3.2 L 3.5-5.0 g/dL Lipase 180 H 16-77 U/L Thyroid Stimulating Hormone (TSH) 0.64 0.36-3.74 uIU/mL Direct Bilirubin 0.4 H 0.0-0.3 mg/dL Total Creatine Kinase 87 21-232 U/L B-Type Natriuretic Peptide 131 H 0-100 pg/mL Triglycerides Level 114 30-200 mg/dL Coagulation Labs: Test 04/09/24 17:48 Range/Units Prothrombin Time 39.8 *H 9.6-11.6 SEC Prothromb Time International Ratio 4.09 *H 0.85-1.15 Activated Partial Thromboplast Time 38.2 H 26.3-35.5 SEC DIAGNOSTICS / RADIOLOGY RESULTS: [ ] PLAN NEURO: Minimize central acting medications as possible. Maintain fall precautions, adequate lighting during the day PULMONARY: Supplemental 02 as needed. Maintain aspiration precautions at all times CARDIOVASCULAR: Follow hemodynamics. Vital signs per facility protocol Hold Coumadin start patient on heparin drip GI & NUTRITION: Continue with nutritional support. Continue stool softeners and laxatives as needed. Consult to surgery MRCP Clear liquid diet Trend lipase and liver function KIDNEYS & ELECTROLYTES: Strict monitoring of intake, output and overall fluid balance. Avoid nephrotoxic medications to the extent possible. Medications to be dosed according to renal function. Monitor electrolytes and replace as needed per protocol ENDOCRINE: Maintain blood glucose between 100-180 at all times. Hypoglycemia protocol in place INFECTIOUS DISEASE: Trend temperature, WBC and procalcitonin level Follow cultures, deescalate antibiotics as soon as possible. Panculture if new onset fever Zosyn for now Continue to follow cultures of the urine and blood. ONCOLOGY/HEMATOLOGY/COAGULATION: Monitor for s/s of bleeding Monitor hemoglobin, coagulation studies as needed SKIN: Pressure ulcer prevention per facility protocol Specialty mattress ORTHO/REHAB: Continue PT/OT Prophylaxis: Continue GI and DVT prophylaxis Code Status: Full Resuscitation Disposition: TBD Other: Total patient care time exceeds 35 minutes excluding all procedures. The patient has seen and evaluated, the case has been discussed with the OVEREDGE SEWER, I agree with the clinical findings and plan of care, time spend at the bedside more than 40 minutes. MARYLIN LIU CNP Apr 10, 2024 10:47 JUVE COOPER MD Apr 16, 2024 10:58
--- NOTE | 2024-04-10 12:40 | HMCIMG ---
Exam Type: MRI OF THE ABDOMEN WITHOUT CONTRAST and MR cholangiopancreatography Comparison Study: none History: cholelithiasis, pancreatitis PROTOCOL: Examination is done with multiecho multiplanar sequences. ASSET with multiplanar 3-D reconstructions MR cholangiopancreatography sequences are also available for review. MRCP performed customary fashion. 2D axial FIESTA fat-saturated images of abdomen, coronal thick slab MRCP ASSET scan and coronal thin slab MRCP ASSET 3 mm images and maximum intensity projection postprocessing, MIP projected in the customary circumferential and head over heels fashion. FINDINGS: No evidence of nephro or ureterolithiasis is found. No hydronephrosis or ureteral dilatation is seen. The stomach is unremarkable. There is no evidence of gastric dilatation. No blastic thickening is noted to suggest inflammation or tumor. There is no perforation. There is no gastric outlet obstruction. There is no ulceration. The spleen is unremarkable. It is not enlarged. The pancreas shows normal anatomy. It is not fatty replaced. It shows no lesions. The pancreatic duct is not dilated. There is cholelithiasis and gallbladder hydrops. There is pericholecystic fluid and the gallbladder wall is thickened and these findings are consistent with acute cholecystitis. The adrenal glands are unremarkable. There is no enlargement. No lesions are noted. The liver is unremarkable. It shows no focal masses. The visualized segments of large and small bowel appear unremarkable. The bony and vascular structures are unremarkable for the patient's age. MRCP shows no evidence of choledocholithiasis or biliary obstruction. IMPRESSION: CHOLELITHIASIS AND FINDINGS CONSISTENT WITH ACUTE CHOLECYSTITIS. Normal MRCP.
[2024-04-10] MEDS: HEParin 25,000 UNITS/250ML D5W 250 ML IV SCH (13:54)
--- NOTE | 2024-04-10 13:59 | HMCSR ---
APPROVED REPORT EXAM: Two-dimensional and M-mode echocardiogram with Doppler and color Doppler. INDICATION ICD: Chest Pain 2D Dimensions RVDd3.6 cmLVEF(%)80.7 (>50%)LVED Vol(simp.)88.3 mL IVSd1.0 (0.7-1.1cm)FS(%)49 %LVES Vol(simp.)32.3 mL LVDd3.7 (3.8-5.6cm)Ao Root(2D)2.9 (2.0-3.7cm)LVEF(%, simp.)63 % PWd1.0 (0.7-1.1cm)LVOT diam2.0 (1.8-2.4cm)LA ESV INDEX (4CH)53.40 mL/m2 IVSs1.5 cmLA ESV INDEX (2CH)58.30 mL/m2 LVDs1.9 (2.5-4.0cm)LA ESV INDEX (BP)58.70 mL/m2 PWs1.9 cm Aortic Valve AoV VTI0.4 mAo Mean GR6.0 mmHgLVOT VTI0.23 m ANNEL (VMAX)2.1 cm2AVA (VTI) 2.1 cm2 Mitral Valve P 1/2 T77 msMV Mean GR7 mmHg MVA (PHT)2.9 cm2MVA (VTI)1.9 cm2 TDI Medial E' Peak V4.80 cm/sLateral E' Peak V6.70 cm/s Tricuspid Valve TR Vmax2.6 m/s TR Peak GR28.0 mmHg Left Ventricle The left ventricle is normal size. There is normal LV segmental wall motion. There is normal left russell tricular wall thickness. LVEF is 60-65%. Indeterminate diastolic dysfunction. Right Ventricle The right ventricle is normal size. The right ventricular systolic function is normal. Atria The left atrium is mildly to moderately dilated. The right atrium size is normal. Aortic Valve The aortic valve is normal in structure. No aortic regurgitation is present. There is no aortic valvu lar stenosis. Mitral Valve Prosthetic mitral valve is grossly normal in appearance. There is no mitral valve regurgitation noted . There is no mitral valve stenosis. Tricuspid Valve The tricuspid valve is normal in structure. There is mild tricuspid valve regurgitation noted. Pulmonic Valve The pulmonary valve is normal in structure. There is no pulmonic valvular regurgitation. Great Vessels The aortic root is normal in size. The IVC is normal in size and collapses >50% with inspiration. Pericardium There is no pericardial effusion. Conclusion LVEF is 60-65%. The left atrium is mildly to moderately dilated. Prosthetic mitral valve is grossly normal in appearance. There is no pericardial effusion.
[2024-04-10] MEDS: MAGNESIUM 2GM PREMIX 50ML 50 ML IV PRN (15:00)
--- NOTE | 2024-04-10 16:48 | CONS ---
HISTORY OF PRESENT ILLNESS: The patient is a -year-old female seen in the ICU, who was admitted with biliary pancreatitis. The patient states she was having epigastric pain for 2 days prior to admission, no nausea and vomiting, and was worked up to find she had UTI as well as the biliary pancreatitis. The patient was admitted to ICU for observation. PAST MEDICAL HISTORY: As above, also hypertension, diabetes, hyperlipidemia, open heart with mechanical valve, bilateral mastectomy, on anticoagulation. ALLERGIES: The patient has no known drug allergies. PHYSICAL EXAMINATION: GENERAL: The patient is seen. She is awake, alert, and oriented, in no acute distress. VITAL SIGNS: Stable. CHEST: Clear. HEART: Regular rate and rhythm. ABDOMEN: Soft, nontender, no guarding, no rebound. EXTREMITIES: Show no edema. LABORATORY DATA: White count is 9.4, hematocrit of 32.4, platelets are 171. Potassium is 3. AST of 67, ALT of 50. Lipase of 180, down from 1400. INR of 4.0. ASSESSMENT AND PLAN: Biliary pancreatitis. Ultrasound shows cholelithiasis, borderline common bile duct, on blood thinners. Discussed with the patient. We will get an MRCP due to the borderline common duct. The patient will be converted to heparin, and once her INR is stable and lipase is down, we will proceed with laparoscopic cholecystectomy tentatively on Friday. In the meantime, the patient will be on clear liquids. TID: [id number] RECEIPT: [id number]
--- NOTE | 2024-04-10 17:08 | NUR ---
INITIAL ASSESSMENT Patient lives with spouse, Anil Villa. She has no home services or DME. Patient is able to complete ADLs and drives. PCP is Dr. Kalli Navas. Pharmacy is [facility] in [place]. Patient has no issues with having stable [facility] to live in or transportation. She and spouse have lived in their home for some time. No concerns voiced regarding not having enough food in the home. No safety concerns voiced regarding returning home. DCP is home. Addendum: 04/10/24 at 1710 by RAMSES JAIN SS Amended: Links added.
[2024-04-10] MEDS: PoTASSium chl 10% ELIXIR 20MEQ 20 MEQ/15 ML UDCUP PO PRN (17:36)
[2024-04-10] MEDS: acetaMINOPHEN 325 MG TAB PO PRN (17:36)
[2024-04-11] VITALS (12 sets, daily range): BP systolic 119–151; BP diastolic 58–79; PULSE 60–85; RESP 16–20; TEMP 98–98.6; O2SAT 98–99
[2024-04-11 02:20] LABS: BASOPHILS # (AUTO) 0.06 K/uL (0.00-0.20); BASOPHILS % (AUTO) 0.8 % (0.0-5.0); EOSINOPHILS # (AUTO) 0.28 K/uL (0.00-0.70); EOSINOPHILS % (AUTO) 3.9 % (0.0-8.0); HEMATOCRIT 33.6 % (36-48); IMMATURE GRANULOCYTE ABSOLUTE 0.02 K/uL (0-1); LYMPHOCYTES # (AUTO) 1.3 K/uL (1.0-4.8); LYMPHOCYTES % (AUTO) 18.3 % (21.0-51.0); MEAN CORPUSCULAR HEMOGLOBIN 29.6 pg (27.0-33.0); MEAN CORPUSCULAR HGB CONC 33.9 g/dL (32.0-36.0); MEAN CORPUSCULAR VOLUME 87.3 fL (79-99); MONOCYTES # (AUTO) 0.5 K/uL (0.1-1.0); MONOCYTES % (AUTO) 6.3 % (3.0-13.0); NEUTROPHILS % (AUTO) 70.4 % (40.0-77.0); PLATELET COUNT (AUTO) 161 K/uL (130-400); RED BLOOD CELL COUNT(AUTO) 3.85 MIL/uL (4.00-5.50); RED CELL DISTRIBUTION WIDTH 14.5 % (11.0-15.5); WHITE BLOOD COUNT (AUTO) 7.2 K/uL (4.8-10.8)
[2024-04-11 02:45] LABS: ALBUMIN 3.2 g/dL (3.5-5.0); BILIRUBIN,TOTAL 0.9 mg/dL (0.2-1.0); CREATININE 0.9 mg/dL (0.5-1.0); TOTAL PROTEIN, SERUM 6.1 g/dL (6.0-8.3)
--- NOTE | 2024-04-11 06:30 | NUR ---
arrival report received from hallie collado. patient arrived from room 207 to room 405. patient is on a heparin drip and on zosyn. no shortness of breath. door open, call light within reach, bed alarm on, 2 side rails up. will continue to monitor patient.
--- NOTE | 2024-04-11 11:51 | PN ---
Patient without complaints hungry abdomen is soft nontender. INR is pending on heparin drip. If patient coagulopathy has resolved by tomorrow we will schedule for otherwise Friday. Clear liquids NPO after midnight Vitals/Labs Vital Signs Date Time Temp Pulse Resp B/P (MAP) Pulse Ox O2 Delivery O2 Flow Rate FiO2 04/11/24 08:00 98.2 85 16 144/79 99 Room Air 04/10/24 20:00 0 21 Laboratory Tests 04/11/24 02:14 Medications Current Medications Pantoprazole Sodium 40 mg ONCE ONCE IVP Last administered on 04/09/24at 21:26; Start 04/09/24 at 18:30; Stop 04/09/24 at 18:31; Status DC Nitroglycerin 1 inch ONCE ONCE TD Last administered on 04/09/24at 21:27; Start 04/09/24 at 18:30; Stop 04/09/24 at 18:31; Status DC Aspirin 325 mg ONCE ONCE PO Last administered on 04/09/24at 21:26; Start 04/09/24 at 18:30; Stop 04/09/24 at 18:31; Status DC Insulin Human Regular 5 unit ONCE ONCE IV Last administered on 04/09/24at 21:29; Start 04/09/24 at 20:30; Stop 04/09/24 at 20:31; Status DC Sodium Chloride 1,000 ml @ 200 mls/hr Q5H IV Last administered on 04/10/24at 09:32; Start 04/09/24 at 23:30; Stop 04/10/24 at 11:30; Status DC Acetaminophen 650 mg Q6H PRN PO Last administered on 04/10/24at 17:36; Start 04/09/24 at 23:30; Stop 05/09/24 at 23:29 Acetaminophen 650 mg Q6H PRN RC; Start 04/09/24 at 23:30; Stop 05/09/24 at 23:29 Lactulose 20 gm Q6H PRN PO; Start 04/09/24 at 23:30; Stop 05/09/24 at 23:29 Docusate Sodium 100 mg BID PRN PO; Start 04/09/24 at 23:30; Stop 05/09/24 at 23:29 Temazepam 15 mg HS PRN PO; Start 04/09/24 at 23:30; Stop 05/09/24 at 23:29 Ondansetron HCl 4 mg Q6H PRN IVP; Start 04/09/24 at 23:30; Stop 05/09/24 at 23:29 Hydralazine HCl 10 mg Q2H PRN IV; Start 04/09/24 at 23:30; Stop 05/09/24 at 23:29 Hydromorphone HCl 0.5 mg Q4H PRN IVP; Start 04/09/24 at 23:30; Stop 04/14/24 at 23:29 Insulin Human Regular INSULIN SLIDING SCAL... ACHS SQ; Start 04/10/24 at 07:30; Stop 05/10/24 at 07:29 Piperacillin Sod/ Tazobactam Sod 3.375 gm Q8H IVPB Last administered on 04/11/24at 06:07; Start 04/10/24 at 09:00; Stop 04/11/24 at 07:45; Status DC Sodium Chloride 50 ml AD IV; Start 04/10/24 at 09:00; Stop 04/11/24 at 07:45; Status DC Potassium Chloride 100 ml @ 50 mls/hr AD PRN IV; Start 04/10/24 at 10:00; Stop 04/10/24 at 10:15; Status DC Magnesium Sulfate 50 ml @ 0 mls/hr PROTOCOL PRN IV Last administered on 04/10/24at 15:00; Start 04/10/24 at 10:00; Stop 05/10/24 at 09:59 Potassium Chloride 100 ml @ 100 mls/hr AD PRN IV; Start 04/10/24 at 10:30; Stop 05/10/24 at 10:29 Potassium Chloride 20 meq AD PRN PO Last administered on 04/10/24at 22:37; Start 04/10/24 at 10:30; Stop 05/10/24 at 10:29 Potassium Chloride 20 meq AD PRN PO; Start 04/10/24 at 10:30; Stop 05/10/24 at 10:29 Heparin Sodium/ Dextrose 250 ml @ 0 mls/hr Q6H IV Last administered on 04/10/24at 13:54; Start 04/10/24 at 11:30; Stop 05/10/24 at 11:29 Piperacillin Sod/ Tazobactam Sod 3.375 gm Q8H IVPB; Start 04/11/24 at 14:00; Stop 04/21/24 at 13:59 ROMAN ECHEVARRIA MD Apr 11, 2024 11:51
[2024-04-11 14:19] LABS: INR 1.95 (0.85-1.15); PROTHROMBIN TIME 20.4 SEC (9.6-11.6)
[2024-04-11 14:20] LABS: PARTIAL THROMBOPLASTIN TIME 66.1 SEC (26.3-35.5)
[2024-04-11] MEDS: ZOSYN 3.375GM +NS 50ML IVPB SCH (15:14)
--- NOTE | 2024-04-11 20:20 | NUR ---
Heparin drip ptt 55.7 continue same rate no change. next check would be in 24 hours since two consecutive ptt within normal range.
--- NOTE | 2024-04-11 21:11 | PN ---
[facility] PROGRESS NOTE Date Patient Seen: Apr 11, 2024 Time of Visit: 21:11 Supervising Physician: [Dr. Damon] Primary Care Physician: Dr. Kalli Navas- [facility] Outpatient Specialists: Jamie Shaver, Dr. Summers Inpatient Consults: Dr. Hays PROBLEM LIST: Acute abdominal pain secondary to below Acute cholelithiasis Acute pancreatitis secondary to biliary stones Acute transaminitis secondary to above Acute complicated cystitis Chronic anticoagulation with coumadin with supra therapeutic INR Hypertension Hypokalemia Hyperglycemia Hypomagnesemia hx of mitral valvulopathy s/p mechanical mitral valve replacement on coumadin History of diabetes mellitus, hyperlipidemia, hypertension, Mechanical valve surgery, bilateral mastectomy INTERVAL HISTORY: [Patient was admitted for evaluation of epigastric pain/chest pain associated with diaphoresis. She was found to have acute pancreatitis in the setting of cholelithiasis. Her lipase was 1461 on admission and elevated liver enzymes with a bilirubin of 1.3. Now improved with a lipase of 128 and a bilirubin of 0.9 with LFTs downtrending. She has a history of mechanical mitral valve for which she is on chronic warfarin. Her INR on admission was four. She was converted to heparin drip, INR today is 1.95. She is pending laparoscopic cholecystectomy by Dr. Cannon of renal however is unable to perform the surgery due to elevated INR. We will continue the heparin drip for now and monitor INR. The patient's symptoms have resolved. No nausea, vomiting or epigastric abdominal pain even with palpation. Her MRCP is consistent with acute cholecystitis. Her urine culture is growing 100k CFU's. Will continue zosyn a ntibiotics.] REVIEW OF SYSTEMS: General: No Fever, No Chills, No Night Sweats, No Fatigue, No Malaise, No Appetite HEENT: No Head Aches, No Visual Changes, No Eye Pain, No Ear Pain, No Dysphasia, No Sinus Congestion, No Post Nasal Drip, No Sore Throat Pulmonary: No Dyspnea; No Cough, No Pleuritic Chest Pain Cardiovascular: No: Chest Pain, Palpitations, Orthopnea, Paroxysmal Noc. Dyspnea, Edema, Lt Headedness Gastrointestinal: No: Nausea, Vomiting, yes Abdominal Pain,no Diarrhea, Constipation, Melena, Hematochezia Genitourinary: No Dysuria, No Frequency, No Incontinence, No Hematuria, No Retention Musculoskeletal: No: other, neck pain, shoulder pain, arm pain, back pain, hand pain, leg pain, foot pain Skin: No Urticaria, No Rash Neurological: No: Weakness, Numbness, Incoordination, Change in speech, Confusion, Seizures PHYSICAL EXAM: GENERAL: alert, weak, awake oriented x 3 HEENT: EOMI, Sclera non icteric, moist mucosa NECK: Supple, no JVD, trachea midline LUNGS: Clear breath sounds bilaterally. No wheezes HEART: Regular rate and rhythm. Normal S1 and S2, without murmurs ABD: Abdomen soft, tender to touch to right upper quadrant. Bowel sounds present EXT: No clubbing cyanosis or edema NEURO: Alert and oriented to person, follows commands Vital Signs (last 8hr) Date Time Temp Pulse Resp B/P (MAP) Pulse Ox O2 Delivery O2 Flow Rate FiO2 04/11/24 16:00 98.6 72 16 136/67 97 Room Air LABS: Hematology Labs: Test 04/11/24 02:14 Range/Units White Blood Count 7.2 4.8-10.8 K/uL Red Blood Count 3.85 L 4.00-5.50 MIL/uL Hemoglobin 11.4 L 12.0-16.0 g/dL Hematocrit 33.6 L 36-48 % Mean Corpuscular Volume 87.3 79-99 fL Mean Corpuscular Hemoglobin 29.6 27.0-33.0 pg Mean Corpuscular Hemoglobin Concent 33.9 32.0-36.0 g/dL Red Cell Distribution Width 14.5 11.0-15.5 % Platelet Count 161 130-400 K/uL Mean Platelet Volume 11.2 H 7.5-10.5 fL Immature Granulocyte % (Auto) 0.3 0-1 % Neutrophils (%) (Auto) 70.4 40.0-77.0 % Lymphocytes (%) (Auto) 18.3 L 21.0-51.0 % Monocytes (%) (Auto) 6.3 3.0-13.0 % Eosinophils (%) (Auto) 3.9 0.0-8.0 % Basophils (%) (Auto) 0.8 0.0-5.0 % Neutrophils # (Auto) 5.0 1.8-7.7 K/uL Lymphocytes # (Auto) 1.3 1.0-4.8 K/uL Monocytes # (Auto) 0.5 0.1-1.0 K/uL Eosinophils # (Auto) 0.28 0.00-0.70 K/uL Basophils # (Auto) 0.06 0.00-0.20 K/uL Absolute Immature Granulocyte (auto 0.02 0-1 K/uL Nucleated Red Blood Cells 0.0 0.0-0.19 % Chemistry Labs: Test 04/11/24 02:14 04/10/24 20:19 04/10/24 07:10 Range/Units Sodium Level 145 136-145 mmol/L Potassium Level 4.0 3.5-5.1 mmol/L Chloride Level 113 H 101-111 mmol/L Carbon Dioxide Level 26 21-32 mmol/L Blood Urea Nitrogen 6 L 7-18 mg/dL Creatinine 0.9 0.5-1.0 mg/dL Glomerular Filtration Rate Calc 68 >90 mL/min Random Glucose 144 H 70-105 mg/dL Total Calcium 7.8 L 8.5-10.1 mg/dL Total Bilirubin 0.9 0.2-1.0 mg/dL Aspartate Amino Transf (AST/SGOT) 35 10-37 U/L Alanine Aminotransferase (ALT/SGPT) 37 # 12-78 U/L Alkaline Phosphatase 101 50-136 U/L Total Protein 6.1 6.0-8.3 g/dL Albumin 3.2 L 3.5-5.0 g/dL Lipase 128 H 16-77 U/L Magnesium Level 2.30 1.80-2.40 mg/dL Phosphorus Level 2.9 2.5-4.9 mg/dL Troponin I High Sensitivity 11 4-50 ng/L Thyroid Stimulating Hormone (TSH) 0.64 0.36-3.74 uIU/mL Coagulation Labs: Test 04/11/24 20:28 04/11/24 14:00 Range/Units Activated Partial Thromboplast Time 55.7 H 26.3-35.5 SEC Prothrombin Time 20.4 H 9.6-11.6 SEC Prothromb Time International Ratio 1.95 H 0.85-1.15 DIAGNOSTICS / RADIOLOGY RESULTS: [Exam Type: MRI OF THE ABDOMEN WITHOUT CONTRAST and MR cholangiopancreatography Comparison Study: none History: cholelithiasis, pancreatitis PROTOCOL: Examination is done with multiecho multiplanar sequences. ASSET with multiplanar 3-D reconstructions MR cholangiopancreatography sequences are also available for review. MRCP performed customary fashion. 2D axial FIESTA fat-saturated images of abdomen, coronal thick slab MRCP ASSET scan and coronal thin slab MRCP ASSET 3 mm images and maximum intensity projection postprocessing, MIP projected in the customary circumferential and head over heels fashion. FINDINGS: No evidence of nephro or ureterolithiasis is found. No hydronephrosis or ureteral dilatation is seen. The stomach is unremarkable. There is no evidence of gastric dilatation. No blastic thickening is noted to suggest inflammation or tumor. There is no perforation. There is no gastric outlet obstruction. There is no ulceration. The spleen is unremarkable. It is not enlarged. The pancreas shows normal anatomy. It is not fatty replaced. It shows no lesions. The pancreatic duct is not dilated. There is cholelithiasis and gallbladder hydrops. There is pericholecystic fluid and the gallbladder wall is thickened and these findings are consistent with acute cholecystitis. The adrenal glands are unremarkable. There is no enlargement. No lesions are noted. The liver is unremarkable. It shows no focal masses. The visualized segments of large and small bowel appear unremarkable. The bony and vascular structures are unremarkable for the patient's age. MRCP shows no evidence of choledocholithiasis or biliary obstruction. IMPRESSION: CHOLELITHIASIS AND FINDINGS CONSISTENT WITH ACUTE CHOLECYSTITIS. Normal MRCP.] Left Ventricle The left ventricle is normal size. There is normal LV segmental wall motion. There is normal left ventricular wall thickness. LVEF is 60-65%. Indeterminate diastolic dysfunction. Right Ventricle The right ventricle is normal size. The right ventricular systolic function is normal. Atria The left atrium is mildly to moderately dilated. The right atrium size is normal. Aortic Valve The aortic valve is normal in structure. No aortic regurgitation is present. There is no aortic valvular stenosis. Mitral Valve Prosthetic mitral valve is grossly normal in appearance. There is no mitral valve regurgitation noted. There is no mitral valve stenosis. Tricuspid Valve The tricuspid valve is normal in structure. There is mild tricuspid valve regurgitation noted. Pulmonic Valve The pulmonary valve is normal in structure. There is no pulmonic valvular regurgitation. Great Vessels The aortic root is normal in size. The IVC is normal in size and collapses >50% with inspiration. Pericardium There is no pericardial effusion. Conclusion LVEF is 60-65%. The left atrium is mildly to moderately dilated. Prosthetic mitral valve is grossly normal in appearance. There is no pericardial effusion. PLAN NEURO: Minimize central acting medications as possible. Maintain fall precautions, adequate lighting during the day PULMONARY: Supplemental 02 as needed. Maintain aspiration precautions at all times CARDIOVASCULAR: Follow hemodynamics. Vital signs per facility protocol Hold Coumadin start patient on heparin drip GI & NUTRITION: Continue with nutritional support. Continue stool softeners and laxatives as needed. Consult to surgery MRCP Clear liquid diet Trend lipase and liver function KIDNEYS & ELECTROLYTES: Strict monitoring of intake, output and overall fluid balance. Avoid nephrotoxic medications to the extent possible. Medications to be dosed according to renal function. Monitor electrolytes and replace as needed per protocol ENDOCRINE: Maintain blood glucose between 100-180 at all times. Hypoglycemia protocol in place INFECTIOUS DISEASE: Trend temperature, WBC and procalcitonin level Follow cultures, deescalate antibiotics as soon as possible. Panculture if new onset fever Zosyn for now Continue to follow cultures of the urine and blood. ONCOLOGY/HEMATOLOGY/COAGULATION: Monitor for s/s of bleeding Monitor hemoglobin, coagulation studies as needed SKIN: Pressure ulcer prevention per facility protocol Specialty mattress ORTHO/REHAB: Continue PT/OT Prophylaxis: Continue GI and DVT prophylaxis Code Status: Full Resuscitation Disposition: TBD Other: Total patient care time exceeds 35 minutes excluding all procedures. JULIETTE SCHNEIDER Apr 11, 2024 21:11
[2024-04-11] MEDS: TEMAZepam 15 MG CAPSULE PO PRN (23:08)
--- NOTE | 2024-04-12 | NUR ---
Heparin Drip Stopped at midnight for procedure tomorrow per order.
[2024-04-12 02:08] LABS: BASOPHILS # (AUTO) 0.05 K/uL (0.00-0.20); BASOPHILS % (AUTO) 0.6 % (0.0-5.0); EOSINOPHILS # (AUTO) 0.34 K/uL (0.00-0.70); EOSINOPHILS % (AUTO) 4.2 % (0.0-8.0); HEMATOCRIT 33.1 % (36-48); IMMATURE GRANULOCYTE ABSOLUTE 0.02 K/uL (0-1); LYMPHOCYTES # (AUTO) 1.3 K/uL (1.0-4.8); LYMPHOCYTES % (AUTO) 16.2 % (21.0-51.0); MEAN CORPUSCULAR HEMOGLOBIN 29.3 pg (27.0-33.0); MEAN CORPUSCULAR HGB CONC 33.8 g/dL (32.0-36.0); MEAN CORPUSCULAR VOLUME 86.6 fL (79-99); MONOCYTES # (AUTO) 0.5 K/uL (0.1-1.0); MONOCYTES % (AUTO) 6.7 % (3.0-13.0); NEUTROPHILS # (AUTO) 5.8 K/uL (1.8-7.7); NEUTROPHILS % (AUTO) 72.1 % (40.0-77.0); PLATELET COUNT (AUTO) 159 K/uL (130-400); RED BLOOD CELL COUNT(AUTO) 3.82 MIL/uL (4.00-5.50); RED CELL DISTRIBUTION WIDTH 14.3 % (11.0-15.5)
[2024-04-12 02:23] LABS: CREATININE 0.9 mg/dL (0.5-1.0); POTASSIUM 3.2 mmol/L (3.5-5.1); TOTAL PROTEIN, SERUM 6.1 g/dL (6.0-8.3)
[2024-04-12 03:24] VITALS: BP 132/58; PULSE 76; RESP 16; TEMP 98.4
[2024-04-12 07:50] VITALS: O2SAT 100
[2024-04-12 08:00] VITALS: BP 130/56; PULSE 83; RESP 16; TEMP 98.3
[2024-04-12 08:27] LABS: INR 1.64 (0.85-1.15); PROTHROMBIN TIME 17.5 SEC (9.6-11.6)
[2024-04-12 08:28] LABS: PARTIAL THROMBOPLASTIN TIME 31.9 SEC (26.3-35.5)
--- NOTE | 2024-04-12 08:30 | NUR ---
DR. ECHEVARRIA PER DR. ECHEVARRIA WILL NOT TAKE DUE TO INR ELEVATED. PT IS TO BE RESTARTED ON HEPARIN DRIP @11UNITS/KG/HR. PT IS RESUME A LOW RESIDUE DIET. DEPENDING ON INR RESULTS CAN POSSIBLY BE SCHEDULED TOMORROW FOR [facility] OR TO FOLLOW UP IN ONE WEEK FOR OUTPATIENT.
[2024-04-12 12:00] VITALS: BP 132/61; PULSE 89; RESP 16; TEMP 98.7
--- NOTE | 2024-04-12 12:17 | PN ---
Patient has no complaints of pain is tolerating fluids well advance diet to low- fat as patient's Coumadin levels are still too high for surgery at this point patient can be followed up as an outpatient as scheduled for cholecystectomy as an outpatient or in the a.m. if INR is improved. This was discussed with the patient. Vitals/Labs Vital Signs Date Time Temp Pulse Resp B/P (MAP) Pulse Ox O2 Delivery O2 Flow Rate FiO2 04/12/24 08:00 98.2 83 16 130/56 100 Room Air 04/11/24 21:20 0 21 Laboratory Tests 04/12/24 02:03 Medications Current Medications Pantoprazole Sodium 40 mg ONCE ONCE IVP Last administered on 04/09/24at 21:26; Start 04/09/24 at 18:30; Stop 04/09/24 at 18:31; Status DC Nitroglycerin 1 inch ONCE ONCE TD Last administered on 04/09/24at 21:27; Start 04/09/24 at 18:30; Stop 04/09/24 at 18:31; Status DC Aspirin 325 mg ONCE ONCE PO Last administered on 04/09/24at 21:26; Start 04/09/24 at 18:30; Stop 04/09/24 at 18:31; Status DC Insulin Human Regular 5 unit ONCE ONCE IV Last administered on 04/09/24at 21:29; Start 04/09/24 at 20:30; Stop 04/09/24 at 20:31; Status DC Sodium Chloride 1,000 ml @ 200 mls/hr Q5H IV Last administered on 04/10/24at 09:32; Start 04/09/24 at 23:30; Stop 04/10/24 at 11:30; Status DC Acetaminophen 650 mg Q6H PRN PO Last administered on 04/10/24at 17:36; Start 04/09/24 at 23:30; Stop 05/09/24 at 23:29 Acetaminophen 650 mg Q6H PRN RC; Start 04/09/24 at 23:30; Stop 05/09/24 at 23:29 Lactulose 20 gm Q6H PRN PO; Start 04/09/24 at 23:30; Stop 05/09/24 at 23:29 Docusate Sodium 100 mg BID PRN PO; Start 04/09/24 at 23:30; Stop 05/09/24 at 23:29 Temazepam 15 mg HS PRN PO Last administered on 04/11/24at 23:08; Start 04/09/24 at 23:30; Stop 05/09/24 at 23:29 Ondansetron HCl 4 mg Q6H PRN IVP; Start 04/09/24 at 23:30; Stop 05/09/24 at 23:29 Hydralazine HCl 10 mg Q2H PRN IV; Start 04/09/24 at 23:30; Stop 05/09/24 at 23:29 Hydromorphone HCl 0.5 mg Q4H PRN IVP; Start 04/09/24 at 23:30; Stop 04/14/24 at 23:29 Insulin Human Regular INSULIN SLIDING SCAL... ACHS SQ; Start 04/10/24 at 07:30; Stop 05/10/24 at 07:29 Piperacillin Sod/ Tazobactam Sod 3.375 gm Q8H IVPB Last administered on 04/11/24at 06:07; Start 04/10/24 at 09:00; Stop 04/11/24 at 07:45; Status DC Sodium Chloride 50 ml AD IV; Start 04/10/24 at 09:00; Stop 04/11/24 at 07:45; Status DC Potassium Chloride 100 ml @ 50 mls/hr AD PRN IV; Start 04/10/24 at 10:00; Stop 04/10/24 at 10:15; Status DC Magnesium Sulfate 50 ml @ 0 mls/hr PROTOCOL PRN IV Last administered on 04/10/24at 15:00; Start 04/10/24 at 10:00; Stop 05/10/24 at 09:59 Potassium Chloride 100 ml @ 100 mls/hr AD PRN IV; Start 04/10/24 at 10:30; Stop 05/10/24 at 10:29 Potassium Chloride 20 meq AD PRN PO Last administered on 04/10/24at 22:37; Start 04/10/24 at 10:30; Stop 05/10/24 at 10:29 Potassium Chloride 20 meq AD PRN PO; Start 04/10/24 at 10:30; Stop 05/10/24 at 10:29 Heparin Sodium/ Dextrose 250 ml @ 0 mls/hr Q6H IV Last administered on 04/11/24at 18:13; Start 04/10/24 at 11:30; Stop 05/10/24 at 11:29 Piperacillin Sod/ Tazobactam Sod 3.375 gm Q8H IVPB Last administered on 04/12/24at 05:21; Start 04/11/24 at 14:00; Stop 04/21/24 at 13:59 ROMAN ECHEVARRIA MD Apr 12, 2024 12:17
--- NOTE | 2024-04-12 12:24 | NUR ---
PT REFUSED INSULIN DUE TO EATING PRIOR TO GLUCOSE CHECK.
--- NOTE | 2024-04-12 13:41 | CONS ---
[facility] CARDIOLOGY CONSULTATION REPORT Date Patient Seen: Apr 12, 2024 Time of Visit: 13:21 Requesting Physician: Ted Reason for Consultation: Preoperative cardiac risk assessment inpatient status post mitral valve replacement with mechanical prosthesis on chronic warfarin anticoagulation History of Present Illness: This 73-year-old Latin-German female, patient of Dr. Jamie Beth, with a history of breast CA status post double mastectomy status post chemotherapy, type 2 diabetes mellitus, dyslipidemia, and severe mitral regurgitation with underlying normal coronary arteries (02/21/2022) is status post mitral valve replacement with a [employer] mechanical prosthesis October 01, 2016 was maintained on chronic warfarin anticoagulation. She was in her usual state of good health until 04/09/2024 when she was developed right upper quadrant abdominal pain. Imaging studies have demonstrated cholelithiasis on right upper quadrant ultrasound 04/09/2024 and cholecystitis by MRCP 04/10/2024. On admission the patient's warfarin was held and she was placed on a heparin infusion with treatment protocol. Currently she is comfortable and offers no complaints. Past Medical History: Breast cancer status post prior chemotherapy and bilateral mastectomy April 02, 2022 Severe mitral regurgitation status post mechanical mitral valve replacement with [employer] prosthesis September 2016 Normal coronary arteries by cardiac catheterization 02/21/2022 Long-term warfarin anticoagulation Type 2 diabetes mellitus Dyslipidemia Past Surgical History: Bilateral mastectomy April 02, 2022 Mechanical mitral valve replacement with [employer] prosthesis September 2016 Family History: Noncontributory Social History: Noncontributory Habits: Never smoker. Denies alcohol consumption. Denies illicit drug use Home Meds: Warfarin 4 mg on and 2 mg other days Atorvastatin 40 mg daily Metoprolol succinate ER 25 mg daily Metformin 500 mg daily Tradjenta 5 mg daily Review of Systems: CONST: No fever, fatigue, or weight changes. EYES: No recent vision problems. ENT: No congestion, ear pain, or sore throat. C/V: No chest pain, palpitations, or edema. RESP: No cough, congestion, wheezing or shortness of breath. GI: No abdominal pain, nausea, vomiting, constipation, or diarrhea. : No incontinence or dysuria. SKIN: No rash. NEURO: No headache, focal numbness or weakness, dizziness, or seizures. PSYCH: No depression or anxiety. HEME: No abnormal bruising or bleeding. LYMPH: No swollen glands. Physical Examination: GENERAL: No acute distress. HEAD: Normal with no signs of head trauma. EYES: PERRLA, EOMI, conjunctiva and sclera normal. ENT: Hearing grossly intact, normal oropharynx. NECK: Supple without JVD. There is no tenderness, lymphadenopathy, or masses. No thyromegaly. Normal carotid upstrokes without bruits. LUNGS: Clear breath sounds bilaterally. No wheezes, or rhonchi. HEART: Normal rate and rhythm. There is a very loud S1 at the lower left sternal border with normal mitral opening and closing clicks. There is a 2/6 systolic ejection murmur loudest at the right upper sternal border. There is no diastolic murmur and no holosystolic murmur at the apex. VASC: Peripheral pulses +2 bilaterally. ABD: Bowel sounds normal, soft, nontender, no masses, no organomegaly. No audible bruits. : Not examined LYMPH: No lymphadenopathy noted. EXT: No clubbing, cyanosis or edema. SKIN: No rashes or lesions noted. NEURO: Awake, alert, and oriented x3. No focal sensory or strength deficits noted. Vital Signs (last 8hr) Date Time Temp Pulse Resp B/P (MAP) Pulse Ox O2 Delivery O2 Flow Rate FiO2 04/12/24 12:00 98.8 89 16 132/61 98 Room Air 04/12/24 08:00 98.2 83 16 130/56 100 Room Air Laboratory: Hematology Labs: Test 04/12/24 02:03 Range/Units White Blood Count 8.0 4.8-10.8 K/uL Red Blood Count 3.82 L 4.00-5.50 MIL/uL Hemoglobin 11.2 L 12.0-16.0 g/dL Hematocrit 33.1 L 36-48 % Mean Corpuscular Volume 86.6 79-99 fL Mean Corpuscular Hemoglobin 29.3 27.0-33.0 pg Mean Corpuscular Hemoglobin Concent 33.8 32.0-36.0 g/dL Red Cell Distribution Width 14.3 11.0-15.5 % Platelet Count 159 130-400 K/uL Mean Platelet Volume 11.2 H 7.5-10.5 fL Immature Granulocyte % (Auto) 0.2 0-1 % Neutrophils (%) (Auto) 72.1 40.0-77.0 % Lymphocytes (%) (Auto) 16.2 L 21.0-51.0 % Monocytes (%) (Auto) 6.7 3.0-13.0 % Eosinophils (%) (Auto) 4.2 0.0-8.0 % Basophils (%) (Auto) 0.6 0.0-5.0 % Neutrophils # (Auto) 5.8 1.8-7.7 K/uL Lymphocytes # (Auto) 1.3 1.0-4.8 K/uL Monocytes # (Auto) 0.5 0.1-1.0 K/uL Eosinophils # (Auto) 0.34 0.00-0.70 K/uL Basophils # (Auto) 0.05 0.00-0.20 K/uL Absolute Immature Granulocyte (auto 0.02 0-1 K/uL Nucleated Red Blood Cells 0.0 0.0-0.19 % Chemistry Labs: Test 04/12/24 11:23 04/12/24 02:03 04/11/24 02:14 04/10/24 20:19 Range/Units Whole Blood Glucose 288 #H 70-110 MG/DL Sodium Level 146 H 136-145 mmol/L Potassium Level 3.2 L 3.5-5.1 mmol/L Chloride Level 111 101-111 mmol/L Carbon Dioxide Level 27 21-32 mmol/L Blood Urea Nitrogen 6 L 7-18 mg/dL Creatinine 0.9 0.5-1.0 mg/dL Glomerular Filtration Rate Calc 68 >90 mL/min Random Glucose 135 H 70-105 mg/dL Total Calcium 7.9 L 8.5-10.1 mg/dL Total Bilirubin 1.0 0.2-1.0 mg/dL Aspartate Amino Transf (AST/SGOT) 25 10-37 U/L Alanine Aminotransferase (ALT/SGPT) 26 # 12-78 U/L Alkaline Phosphatase 86 50-136 U/L Total Protein 6.1 6.0-8.3 g/dL Albumin 3.0 L 3.5-5.0 g/dL Lipase 128 H 16-77 U/L Magnesium Level 2.30 1.80-2.40 mg/dL Coagulation Labs: Test 04/12/24 07:53 Range/Units Prothrombin Time 17.5 H 9.6-11.6 SEC Prothromb Time International Ratio 1.64 H 0.85-1.15 Activated Partial Thromboplast Time 31.9 26.3-35.5 SEC Diagnostics / Radiology: MRI of the abdomen with MRCP 04/10/2024: IMPRESSION: CHOLELITHIASIS AND FINDINGS CONSISTENT WITH ACUTE CHOLECYSITIS. Normal MRCP. DICTATED BY: RUTH ROSAS MD DATE: 04/10/24 1237 2D echocardiogram 04/10/2024: Conclusion LVEF is 60-65%. The left atrium is mildly to moderately dilated. Prosthetic mitral valve is grossly normal in appearance. There is no pericardial effusion. DICTATED BY: NUSRAT PEREZ MD DATE: 04/10/24 1137 Impression and Plan: Acute cholecystitis: Low cardiac operative risk for cholecystectomy with normal coronary arteries and normal LV systolic function as well as normally functioning mitral mechanical prosthesis by 2D echocardiogram 04/10/2024: -low risk of perioperative cardiac complications -cleared for surgery when INR less than 1.5 -resume warfarin anticoagulation postoperative day 1. -continue heparin anticoagulation pending therapeutic INR Normal coronary arteries by cardiac catheterization 02/21/2022: Severe mitral regurgitation status post mitral valve replacement with a [employer] mechanical prosthesis [address] Leobardo Summers: Follow-up 2D echocardiogram 04/10/2024 demonstrated normal LV systolic function and valvular function, with LVEF of 60-65%: -SBE prophylaxis prior to any dirty procedures -resume warfarin anticoagulation postoperative day one with bridging with heparin to therapeutic INR greater than 2. Long-term warfarin anticoagulation: -target INR 2.5 to 3.5 given mechanical mitral valve. -resume warfarin postoperative day 1, with bridging heparin anticoagulation until INR greater than 2.0. Comorbidities: Breast cancer status post prior chemotherapy and bilateral mastectomy April 02, 2022 Normal coronary arteries by cardiac catheterization 02/21/2022 Type 2 diabetes mellitus Dyslipidemia GAIL HERRING MD Apr 12, 2024 13:41
[2024-04-12] MEDS: levoFLOXacin 500 MG/D5W 100 ML 100 ML IV ONE (13:49)
[2024-04-12 16:00] VITALS: BP 147/78; PULSE 83; RESP 16; TEMP 97.9
--- NOTE | 2024-04-12 16:18 | PN ---
[facility] PROGRESS NOTE Date Patient Seen: Apr 12, 2024 Time of Visit: 16:18 Supervising Physician: [Dr. Damon] Primary Care Physician: Dr. Kalli Navas- [facility] Outpatient Specialists: Jamie Shaver, Dr. Summers Inpatient Consults: Dr. Hays PROBLEM LIST: Acute abdominal pain secondary to below Acute cholelithiasis Acute pancreatitis secondary to biliary stones Acute transaminitis secondary to above Acute complicated cystitis, klebsiella ozaenae on urine culture Chronic anticoagulation with coumadin with supra therapeutic INR, converted to heparin drip Hypertension Hypokalemia Hyperglycemia Hypomagnesemia hx of mitral valvulopathy s/p mechanical mitral valve replacement on coumadin History of diabetes mellitus, hyperlipidemia, hypertension, bilateral mastectomy Plan: Stop zosyn, start levaquin for 5 days Lap william in AM, stop hep gtt at midnight Resume hep drip post op when cleared with surgeon Needs therapeutic INR 2.5-3.5 prior to DC heparin bridge with warfarin post op Disposition TBD INTERVAL HISTORY: [Patient was admitted for evaluation of epigastric pain/chest pain associated with diaphoresis. She was found to have acute pancreatitis in the setting of cholelithiasis. Her lipase was 1461 on admission and elevated liver enzymes with a bilirubin of 1.3. Now improved with a lipase of 128 and a bilirubin of 0.9 with LFTs downtrending. She has a history of mechanical mitral valve for w hich she is on chronic warfarin. Her INR on admission was four. She was converted to heparin drip, INR today is 1.95. She is pending laparoscopic cholecystectomy by Dr. Cannon of renal however is unable to perform the surgery due to elevated INR. We will continue the heparin drip for now and monitor INR. The patient's symptoms have resolved. No nausea, vomiting or epigastric abdominal pain even with palpation. Her MRCP is consistent with acute cholecystitis. Her urine culture is growing 100k CFU's. Will continue zosyn antibiotics.] 04/12 She has improved abdominal pain, no nausea, vomiting or diarrhea. Her INR today is 1.6, continues on heparin drip. Cardiology is following, appreciate recommendations. Will follow up on general surgery recommendation, patient is tentatively scheduled for lap william in AM. Labs and vitals remain stable, she is on room air. Her urine culture is positive for klebsiella ozaenae, will adjust abx accordingly. REVIEW OF SYSTEMS: General: No Fever, No Chills, No Night Sweats, No Fatigue, No Malaise, No Appetite HEENT: No Head Aches, No Visual Changes, No Eye Pain, No Ear Pain, No Dysphasia, No Sinus Congestion, No Post Nasal Drip, No Sore Throat Pulmonary: No Dyspnea; No Cough, No Pleuritic Chest Pain Cardiovascular: No: Chest Pain, Palpitations, Orthopnea, Paroxysmal Noc. Dyspnea, Edema, Lt Headedness Gastrointestinal: No: Nausea, Vomiting, yes Abdominal Pain,no Diarrhea, Constipation, Melena, Hematochezia Genitourinary: No Dysuria, No Frequency, No Incontinence, No Hematuria, No Retention Musculoskeletal: No: other, neck pain, shoulder pain, arm pain, back pain, hand pain, leg pain, foot pain Skin: No Urticaria, No Rash Neurological: No: Weakness, Numbness, Incoordination, Change in speech, Confusion, Seizures PHYSICAL EXAM: GENERAL: alert, weak, awake oriented x 3 HEENT: EOMI, Sclera non icteric, moist mucosa NECK: Supple, no JVD, trachea midline LUNGS: Clear breath sounds bilaterally. No wheezes HEART: Regular rate and rhythm. Normal S1 and S2, without murmurs ABD: Abdomen soft, tender to touch to right upper quadrant. Bowel sounds present EXT: No clubbing cyanosis or edema NEURO: Alert and oriented to person, follows commands Vital Signs (last 8hr) Date Time Temp Pulse Resp B/P (MAP) Pulse Ox O2 Delivery O2 Flow Rate FiO2 04/12/24 12:00 98.8 89 16 132/61 98 Room Air LABS: Hematology Labs: Test 04/12/24 02:03 Range/Units White Blood Count 8.0 4.8-10.8 K/uL Red Blood Count 3.82 L 4.00-5.50 MIL/uL Hemoglobin 11.2 L 12.0-16.0 g/dL Hematocrit 33.1 L 36-48 % Mean Corpuscular Volume 86.6 79-99 fL Mean Corpuscular Hemoglobin 29.3 27.0-33.0 pg Mean Corpuscular Hemoglobin Concent 33.8 32.0-36.0 g/dL Red Cell Distribution Width 14.3 11.0-15.5 % Platelet Count 159 130-400 K/uL Mean Platelet Volume 11.2 H 7.5-10.5 fL Immature Granulocyte % (Auto) 0.2 0-1 % Neutrophils (%) (Auto) 72.1 40.0-77.0 % Lymphocytes (%) (Auto) 16.2 L 21.0-51.0 % Monocytes (%) (Auto) 6.7 3.0-13.0 % Eosinophils (%) (Auto) 4.2 0.0-8.0 % Basophils (%) (Auto) 0.6 0.0-5.0 % Neutrophils # (Auto) 5.8 1.8-7.7 K/uL Lymphocytes # (Auto) 1.3 1.0-4.8 K/uL Monocytes # (Auto) 0.5 0.1-1.0 K/uL Eosinophils # (Auto) 0.34 0.00-0.70 K/uL Basophils # (Auto) 0.05 0.00-0.20 K/uL Absolute Immature Granulocyte (auto 0.02 0-1 K/uL Nucleated Red Blood Cells 0.0 0.0-0.19 % Chemistry Labs: Test 04/12/24 11:23 04/12/24 02:03 04/11/24 02:14 04/10/24 20:19 Range/Units Whole Blood Glucose 288 #H 70-110 MG/DL Sodium Level 146 H 136-145 mmol/L Potassium Level 3.2 L 3.5-5.1 mmol/L Chloride Level 111 101-111 mmol/L Carbon Dioxide Level 27 21-32 mmol/L Blood Urea Nitrogen 6 L 7-18 mg/dL Creatinine 0.9 0.5-1.0 mg/dL Glomerular Filtration Rate Calc 68 >90 mL/min Random Glucose 135 H 70-105 mg/dL Total Calcium 7.9 L 8.5-10.1 mg/dL Total Bilirubin 1.0 0.2-1.0 mg/dL Aspartate Amino Transf (AST/SGOT) 25 10-37 U/L Alanine Aminotransferase (ALT/SGPT) 26 # 12-78 U/L Alkaline Phosphatase 86 50-136 U/L Total Protein 6.1 6.0-8.3 g/dL Albumin 3.0 L 3.5-5.0 g/dL Lipase 128 H 16-77 U/L Magnesium Level 2.30 1.80-2.40 mg/dL Coagulation Labs: Test 04/12/24 14:29 04/12/24 07:53 Range/Units Activated Partial Thromboplast Time 42.9 #H 26.3-35.5 SEC Prothrombin Time 17.5 H 9.6-11.6 SEC Prothromb Time International Ratio 1.64 H 0.85-1.15 DIAGNOSTICS / RADIOLOGY RESULTS: Aortic Valve AoV VTI 0.4 m Ao Mean GR 6.0 mmHg LVOT VTI 0.23 m ANNEL (VMAX) 2.1 cm2 ANNEL (VTI) 2.1 cm2 Mitral Valve P 1/2 T 77 ms MV Mean GR 7 mmHg MVA (PHT) 2.9 cm2 MVA (VTI) 1.9 cm2 TDI Medial E' Peak V 4.80 cm/s Lateral E' Peak V 6.70 cm/s Tricuspid Valve TR Vmax 2.6 m/s TR Peak GR 28.0 mmHg Left Ventricle The left ventricle is normal size. There is normal LV segmental wall motion. There is normal left ventricular wall thickness. LVEF is 60-65%. Indeterminate diastolic dysfunction. Right Ventricle The right ventricle is normal size. The right ventricular systolic function is normal. Atria The left atrium is mildly to moderately dilated. The right atrium size is normal. Aortic Valve The aortic valve is normal in structure. No aortic regurgitation is present. There is no aortic valvular stenosis. Mitral Valve Prosthetic mitral valve is grossly normal in appearance. There is no mitral valve regurgitation noted. There is no mitral valve stenosis. Tricuspid Valve The tricuspid valve is normal in structure. There is mild tricuspid valve regurgitation noted. Pulmonic Valve The pulmonary valve is normal in structure. There is no pulmonic valvular regurgitation. Great Vessels The aortic root is normal in size. The IVC is normal in size and collapses >50% with inspiration. Pericardium There is no pericardial effusion. Conclusion LVEF is 60-65%. The left atrium is mildly to moderately dilated. Prosthetic mitral valve is grossly normal in appearance. There is no pericardial effusion. PLAN NEURO: Minimize central acting medications as possible. Maintain fall precautions, adequate lighting during the day PULMONARY: Supplemental 02 as needed. Maintain aspiration precautions at all times CARDIOVASCULAR: Follow hemodynamics. Vital signs per facility protocol Hold Coumadin start patient on heparin drip GI & NUTRITION: Continue with nutritional support. Continue stool softeners and laxatives as needed. Consult to surgery MRCP Clear liquid diet Trend lipase and liver function KIDNEYS & ELECTROLYTES: Strict monitoring of intake, output and overall fluid balance. Avoid nephrotoxic medications to the extent possible. Medications to be dosed according to renal function. Monitor electrolytes and replace as needed per protocol ENDOCRINE: Maintain blood glucose between 100-180 at all times. Hypoglycemia protocol in place INFECTIOUS DISEASE: Trend temperature, WBC and procalcitonin level Follow cultures, deescalate antibiotics as soon as possible. Panculture if new onset fever Zosyn for now Continue to follow cultures of the urine and blood. ONCOLOGY/HEMATOLOGY/COAGULATION: Monitor for s/s of bleeding Monitor hemoglobin, coagulation studies as needed SKIN: Pressure ulcer prevention per facility protocol Specialty mattress ORTHO/REHAB: Continue PT/OT Prophylaxis: Continue GI and DVT prophylaxis Code Status: Full Resuscitation Disposition: TBD Other: Total patient care time exceeds 49 minutes excluding all procedures. JULIETTE SCHNEIDER Apr 12, 2024 16:18
[2024-04-12 20:00] VITALS: BP 138/65; PULSE 92; RESP 19; TEMP 98.5
[2024-04-12 20:42] LABS: INR 1.49 (0.85-1.15)
[2024-04-12 20:43] LABS: PARTIAL THROMBOPLASTIN TIME 48.7 SEC (26.3-35.5)
[2024-04-13] VITALS (31 sets, daily range): BP systolic 122–179; BP diastolic 50–87; PULSE 69–110; RESP 13–22; TEMP 97.8–98.8; O2SAT 100
[2024-04-13] MEDS: BUPIvacaine/PF 0.5% 30ML VIAL ONE
[2024-04-13 06:29] LABS: BASOPHILS # (AUTO) 0.04 K/uL (0.00-0.20); BASOPHILS % (AUTO) 0.4 % (0.0-5.0); EOSINOPHILS # (AUTO) 0.37 K/uL (0.00-0.70); EOSINOPHILS % (AUTO) 3.8 % (0.0-8.0); HEMATOCRIT 34.3 % (36-48); IMMATURE GRANULOCYTE ABSOLUTE 0.03 K/uL (0-1); LYMPHOCYTES # (AUTO) 1.2 K/uL (1.0-4.8); LYMPHOCYTES % (AUTO) 11.9 % (21.0-51.0); MEAN CORPUSCULAR HEMOGLOBIN 29.4 pg (27.0-33.0); MEAN CORPUSCULAR HGB CONC 33.2 g/dL (32.0-36.0); MEAN CORPUSCULAR VOLUME 88.4 fL (79-99); MONOCYTES # (AUTO) 0.6 K/uL (0.1-1.0); MONOCYTES % (AUTO) 6.6 % (3.0-13.0); NEUTROPHILS # (AUTO) 7.4 K/uL (1.8-7.7); PLATELET COUNT (AUTO) 154 K/uL (130-400); RED BLOOD CELL COUNT(AUTO) 3.88 MIL/uL (4.00-5.50); RED CELL DISTRIBUTION WIDTH 14.6 % (11.0-15.5); WHITE BLOOD COUNT (AUTO) 9.7 K/uL (4.8-10.8)
[2024-04-13 06:43] LABS: ALBUMIN 3.1 g/dL (3.5-5.0); BILIRUBIN,TOTAL 0.8 mg/dL (0.2-1.0); CREATININE 0.9 mg/dL (0.5-1.0); POTASSIUM 3.5 mmol/L (3.5-5.1); TOTAL PROTEIN, SERUM 6.3 g/dL (6.0-8.3)
[2024-04-13 06:47] LABS: INR 1.24 (0.85-1.15); PROTHROMBIN TIME 13.6 SEC (9.6-11.6)
--- NOTE | 2024-04-13 06:57 | NUR ---
RELAYED INR RESULTS WITH DR ECHEVARRIA SHE SAID OK FOR SURGERY TODAY
--- NOTE | 2024-04-13 10:09 | PN ---
[facility] CARDIOLOGY PROGRESS NOTE Date Patient Seen: Apr 13, 2024 Time of Visit: 10:02 Interval History: This 73-year-old [place] female, patient of Dr. Jamie Beth, with a history of breast CA status post double mastectomy status post chemotherapy, type 2 diabetes mellitus, dyslipidemia, and severe mitral regurgitation with underlying normal coronary arteries (02/21/2022) is status post mitral valve replacement with a [employer] mechanical prosthesis October 01, 2016 was maintained on chronic warfarin anticoagulation. She was in her usual state of good health until 04/09/2024 when she was developed right upper quadrant abdominal pain. Imaging studies have demonstrated cholelithiasis on right upper quadrant ultrasound 04/09/2024 and cholecystitis by MRCP 04/10/2024. On admission the patient's warfarin was held and she was placed on a heparin infusion with treatment protocol. Currently she is comfortable and offers no complaints. This morning the patient's INR is 1.24 and heparin has been placed on hold after midnight. Cholecystectomy as scheduled for later today. Physical Examination: GENERAL: No acute distress. HEAD: Normal with no signs of head trauma. EYES: PERRLA, EOMI, conjunctiva and sclera normal. NECK: Supple without JVD. There is no tenderness, lymphadenopathy, or masses. No thyromegaly. Normal carotid upstrokes without bruits. LUNGS: Clear breath sounds bilaterally. No wheezes, or rhonchi. HEART: There is a normal S1 and S2 with crisp mechanical opening and closing clicks, with a very loud mitral closing click. There is a 2/6 systolic ejection murmur loudest at the right upper sternal border. VASC: Peripheral pulses +2 bilaterally. EXT: No clubbing, cyanosis or edema. NEURO: Awake, alert, and oriented x3. No focal neurological deficits noted. Laboratory: Hematology Labs: Test 04/13/24 06:10 Range/Units White Blood Count 9.7 4.8-10.8 K/uL Red Blood Count 3.88 L 4.00-5.50 MIL/uL Hemoglobin 11.4 L 12.0-16.0 g/dL Hematocrit 34.3 L 36-48 % Mean Corpuscular Volume 88.4 79-99 fL Mean Corpuscular Hemoglobin 29.4 27.0-33.0 pg Mean Corpuscular Hemoglobin Concent 33.2 32.0-36.0 g/dL Red Cell Distribution Width 14.6 11.0-15.5 % Platelet Count 154 130-400 K/uL Mean Platelet Volume 11.7 H 7.5-10.5 fL Immature Granulocyte % (Auto) 0.3 0-1 % Neutrophils (%) (Auto) 77.0 40.0-77.0 % Lymphocytes (%) (Auto) 11.9 L 21.0-51.0 % Monocytes (%) (Auto) 6.6 3.0-13.0 % Eosinophils (%) (Auto) 3.8 0.0-8.0 % Basophils (%) (Auto) 0.4 0.0-5.0 % Neutrophils # (Auto) 7.4 1.8-7.7 K/uL Lymphocytes # (Auto) 1.2 1.0-4.8 K/uL Monocytes # (Auto) 0.6 0.1-1.0 K/uL Eosinophils # (Auto) 0.37 0.00-0.70 K/uL Basophils # (Auto) 0.04 0.00-0.20 K/uL Absolute Immature Granulocyte (auto 0.03 0-1 K/uL Nucleated Red Blood Cells 0.0 0.0-0.19 % Chemistry Labs: Test 04/13/24 06:10 04/13/24 05:14 Range/Units Sodium Level 145 136-145 mmol/L Potassium Level 3.5 3.5-5.1 mmol/L Chloride Level 112 H 101-111 mmol/L Carbon Dioxide Level 25 21-32 mmol/L Blood Urea Nitrogen 7 7-18 mg/dL Creatinine 0.9 0.5-1.0 mg/dL Glomerular Filtration Rate Calc 68 >90 mL/min Random Glucose 181 H 70-105 mg/dL Total Calcium 8.0 L 8.5-10.1 mg/dL Total Bilirubin 0.8 0.2-1.0 mg/dL Aspartate Amino Transf (AST/SGOT) 25 10-37 U/L Alanine Aminotransferase (ALT/SGPT) 19 12-78 U/L Alkaline Phosphatase 88 50-136 U/L Total Protein 6.3 6.0-8.3 g/dL Albumin 3.1 L 3.5-5.0 g/dL Whole Blood Glucose 182 H 70-110 MG/DL Coagulation Labs: Test 04/13/24 06:10 04/12/24 20:17 Range/Units Prothrombin Time 13.6 H 9.6-11.6 SEC Prothromb Time International Ratio 1.24 H 0.85-1.15 Activated Partial Thromboplast Time 48.7 H 26.3-35.5 SEC Diagnostics / Radiology: 2D echo 04/10/2024: Conclusion LVEF is 60-65%. The left atrium is mildly to moderately dilated. Prosthetic mitral valve is grossly normal in appearance. There is no pericardial effusion. DICTATED BY: NUSRAT PEREZ MD DATE: 04/10/24 1137 Impression and Plan: Acute cholecystitis: Low cardiac operative risk for cholecystectomy with normal coronary arteries and normal LV systolic function as well as normally functioning mitral mechanical prosthesis by 2D echocardiogram 04/10/2024: - cleared for surgery with anticipated very low risk of perioperative cardiac complications - the patient's INR is 1.24 today and heparin has been placed on hold after midnight last night. Surgery is planned for later today - resume warfarin anticoagulation postoperative day 1. - resume heparin as a bridge when cleared by neurosurgical nurse practitioner, bridging until INR greater than two with discharge plan at that point. Normal coronary arteries by cardiac catheterization 02/21/2022: Severe mitral regurgitation status post mitral valve replacement with a [employer] mechanical prosthesis [address] Leobardo Summers: Follow-up 2D echocardiogram 04/10/2024 demonstrated normal LV systolic function and valvular function, with LVEF of 60-65%: -SBE prophylaxis prior to any dirty procedures -resume warfarin anticoagulation postoperative day one with bridging with heparin to therapeutic INR greater than 2. Long-term warfarin anticoagulation: -target INR 2.5 to 3.5 given mechanical mitral valve. -resume warfarin postoperative day 1, with bridging heparin anticoagulation until INR greater than 2.0. Comorbidities: Breast cancer status post prior chemotherapy and bilateral mastectomy April 02, 2022 Normal coronary arteries by cardiac catheterization 02/21/2022 Type 2 diabetes mellitus Dyslipidemia GAIL HERRING MD Apr 13, 2024 10:09
[2024-04-13] MEDS: WARFARIN SODIUM 5 MG TAB PO ONE (10:30)
[2024-04-13] MEDS ORDERED: rocuRONium bROMide 10MG/1ML 5ML VL ONE (11:13)
[2024-04-13] MEDS ORDERED: proPOFol 10 MG/ML 20ML VIAL IV ONE (11:13)
[2024-04-13] MEDS ORDERED: FENTanyl CITRate PF 50 MCG/1 ML 2ML VIAL ONE (11:13)
[2024-04-13] MEDS ORDERED: LIDOCAINE PF 100MG/5ML (2%) SYRINGE 5ML ONE (11:13)
[2024-04-13] MEDS: acetaMINOPHEN 100 ML ONE (11:15)
[2024-04-13] MEDS: FAMOTIDINE 20MG VIAL IV ONE (11:15)
--- NOTE | 2024-04-13 11:50 | NUR ---
PT TAKEN DOWN FOR SURGERY AT THIS TIME. PT SHOWS NO SIGNS OR SYMPTOMS OF DISTRESS NOR COMPLAINS OF PAIN OR DISCOMFORT.
[2024-04-13] MEDS ORDERED: dexaMETHasone SOD PHOSPHATE 10MG/ML 1ML VIAL ONE (12:10)
[2024-04-13] MEDS ORDERED: ondanSETRON 4MG INJ ONE (12:10)
[2024-04-13] MEDS: ceFAZolin SODIUM 1 GM VIAL ONE (12:14)
[2024-04-13] MEDS ORDERED: phenylEPHRINE HCL 10 MG/ML 1ML VIAL IV ONE (12:22)
[2024-04-13] MEDS ORDERED: NEOSTIGMINE METHYLSULFATE 1MG/ML IV ONE (12:59)
[2024-04-13] MEDS ORDERED: GLYCOPYRROLATE 0.2 MG/ML 5 ML VIAL ONE (12:59)
[2024-04-13] MEDS: SUGAMMADEX SODIUM 200 MG/2 ML VIAL IV ONE (13:45)
[2024-04-13] MEDS: morPHINE 4 MG SYG ONE (13:45)
--- NOTE | 2024-04-13 14:48 | PN ---
[facility] PROGRESS NOTE Date Patient Seen: Apr 13, 2024 Time of Visit: 14:48 Supervising Physician: Dr. Alex Damon Primary Care Physician: Dr. Kalli Navas- [facility] Outpatient Specialists: Jamie Shaver, Dr. Summers Inpatient Consults: Dr. Hays PROBLEM LIST: Acute abdominal pain secondary to below Acute cholelithiasis Acute pancreatitis secondary to biliary stones Acute transaminitis secondary to above Acute complicated cystitis, klebsiella ozaenae on urine culture Chronic anticoagulation with coumadin with supra therapeutic INR, converted to heparin drip Hypertension Hypokalemia Hyperglycemia Hypomagnesemia hx of mitral valvulopathy s/p mechanical mitral valve replacement on coumadin History of diabetes mellitus, hyperlipidemia, hypertension, bilateral mastectomy Plan: Start heparin postoperatively, 1st dose of Coumadin tonight at home dose Stop zosyn, start levaquin for 5 days Lap william in AM, stop hep gtt at midnight Resume hep drip post op when cleared with surgeon Needs therapeutic INR 2.5-3.5 prior to DC heparin bridge with warfarin post op Disposition TBD INTERVAL HISTORY: Patient currently in the operating room undergoing lap william procedure. Per surgery team patient is cleared to start heparin/Coumadin following her surgery if there is no outright sign of bleeding. We will start the patient on heparin drip today was well as her 1st dose of her home medication Coumadin tonight and monitor INR until she is within her therapeutic window. Patient's blood work today is unremarkable, we will monitor her PC INR closely. REVIEW OF SYSTEMS: General: No Fever, No Chills, No Night Sweats, No Fatigue, No Malaise, No Appetite HEENT: No Head Aches, No Visual Changes, No Eye Pain, No Ear Pain, No Dysphasia, No Sinus Congestion, No Post Nasal Drip, No Sore Throat Pulmonary: No Dyspnea; No Cough, No Pleuritic Chest Pain Cardiovascular: No: Chest Pain, Palpitations, Orthopnea, Paroxysmal Noc. Dyspnea, Edema, Lt Headedness Gastrointestinal: No: Nausea, Vomiting, yes Abdominal Pain,no Diarrhea, Constipation, Melena, Hematochezia Genitourinary: No Dysuria, No Frequency, No Incontinence, No Hematuria, No Retention Musculoskeletal: No: other, neck pain, shoulder pain, arm pain, back pain, hand pain, leg pain, foot pain Skin: No Urticaria, No Rash Neurological: No: Weakness, Numbness, Incoordination, Change in speech, Confusion, Seizures PHYSICAL EXAM: GENERAL: alert, weak, awake oriented x 3 HEENT: EOMI, Sclera non icteric, moist mucosa NECK: Supple, no JVD, trachea midline LUNGS: Clear breath sounds bilaterally. No wheezes HEART: Regular rate and rhythm. Normal S1 and S2, without murmurs ABD: Abdomen soft, tender to touch to right upper quadrant. Bowel sounds present EXT: No clubbing cyanosis or edema NEURO: Alert and oriented to person, follows commands Vital Signs (last 8hr) Date Time Temp Pulse Resp B/P (MAP) Pulse Ox O2 Delivery O2 Flow Rate FiO2 04/13/24 14:13 98.1 75 15 142/67 99 Nasal Cannula 2.0 04/13/24 14:08 73 17 129/59 99 Nasal Cannula 2.0 04/13/24 14:03 69 14 134/55 99 Nasal Cannula 2.0 04/13/24 13:58 74 13 132/61 99 Nasal Cannula 2.0 04/13/24 13:53 72 19 135/61 99 Nasal Cannula 2.0 04/13/24 13:48 74 20 128/59 99 Nasal Cannula 2.0 04/13/24 13:43 70 13 133/57 98 Nasal Cannula 2.0 04/13/24 13:38 74 14 133/60 99 Nasal Cannula 2.0 04/13/24 13:33 76 16 134/50 100 Nasal Cannula 2.0 04/13/24 13:28 73 14 139/60 100 Nonrebreathing Mask 100 04/13/24 13:23 78 17 146/63 100 Nonrebreathing Mask 100 04/13/24 13:18 108 18 165/71 99 Nonrebreathing Mask 100 04/13/24 13:13 97.9 110 13 179/87 95 Nonrebreathing Mask 100 04/13/24 11:31 98.8 80 19 146/62 99 04/13/24 08:07 98.8 85 22 122/76 100 04/13/24 07:50 100 Room Air* 0 21 LABS: Hematology Labs: Test 04/13/24 06:10 Range/Units White Blood Count 9.7 4.8-10.8 K/uL Red Blood Count 3.88 L 4.00-5.50 MIL/uL Hemoglobin 11.4 L 12.0-16.0 g/dL Hematocrit 34.3 L 36-48 % Mean Corpuscular Volume 88.4 79-99 fL Mean Corpuscular Hemoglobin 29.4 27.0-33.0 pg Mean Corpuscular Hemoglobin Concent 33.2 32.0-36.0 g/dL Red Cell Distribution Width 14.6 11.0-15.5 % Platelet Count 154 130-400 K/uL Mean Platelet Volume 11.7 H 7.5-10.5 fL Immature Granulocyte % (Auto) 0.3 0-1 % Neutrophils (%) (Auto) 77.0 40.0-77.0 % Lymphocytes (%) (Auto) 11.9 L 21.0-51.0 % Monocytes (%) (Auto) 6.6 3.0-13.0 % Eosinophils (%) (Auto) 3.8 0.0-8.0 % Basophils (%) (Auto) 0.4 0.0-5.0 % Neutrophils # (Auto) 7.4 1.8-7.7 K/uL Lymphocytes # (Auto) 1.2 1.0-4.8 K/uL Monocytes # (Auto) 0.6 0.1-1.0 K/uL Eosinophils # (Auto) 0.37 0.00-0.70 K/uL Basophils # (Auto) 0.04 0.00-0.20 K/uL Absolute Immature Granulocyte (auto 0.03 0-1 K/uL Nucleated Red Blood Cells 0.0 0.0-0.19 % Chemistry Labs: Test 04/13/24 11:09 04/13/24 06:10 Range/Units Whole Blood Glucose 155 H 70-110 MG/DL Sodium Level 145 136-145 mmol/L Potassium Level 3.5 3.5-5.1 mmol/L Chloride Level 112 H 101-111 mmol/L Carbon Dioxide Level 25 21-32 mmol/L Blood Urea Nitrogen 7 7-18 mg/dL Creatinine 0.9 0.5-1.0 mg/dL Glomerular Filtration Rate Calc 68 >90 mL/min Random Glucose 181 H 70-105 mg/dL Total Calcium 8.0 L 8.5-10.1 mg/dL Total Bilirubin 0.8 0.2-1.0 mg/dL Aspartate Amino Transf (AST/SGOT) 25 10-37 U/L Alanine Aminotransferase (ALT/SGPT) 19 12-78 U/L Alkaline Phosphatase 88 50-136 U/L Total Protein 6.3 6.0-8.3 g/dL Albumin 3.1 L 3.5-5.0 g/dL Coagulation Labs: Test 04/13/24 06:10 04/12/24 20:17 Range/Units Prothrombin Time 13.6 H 9.6-11.6 SEC Prothromb Time International Ratio 1.24 H 0.85-1.15 Activated Partial Thromboplast Time 48.7 H 26.3-35.5 SEC DIAGNOSTICS / RADIOLOGY RESULTS: [ ] PLAN NEURO: Minimize central acting medications as possible. Maintain fall precautions, adequate lighting during the day PULMONARY: Supplemental 02 as needed. Maintain aspiration precautions at all times CARDIOVASCULAR: Follow hemodynamics. Vital signs per facility protocol Hold Coumadin start patient on heparin drip GI & NUTRITION: Continue with nutritional support. Continue stool softeners and laxatives as needed. Consult to surgery MRCP Clear liquid diet Trend lipase and liver function KIDNEYS & ELECTROLYTES: Strict monitoring of intake, output and overall fluid balance. Avoid nephrotoxic medications to the extent possible. Medications to be dosed according to renal function. Monitor electrolytes and replace as needed per protocol ENDOCRINE: Maintain blood glucose between 100-180 at all times. Hypoglycemia protocol in place INFECTIOUS DISEASE: Trend temperature, WBC and procalcitonin level Follow cultures, deescalate antibiotics as soon as possible. Panculture if new onset fever Zosyn for now Continue to follow cultures of the urine and blood. ONCOLOGY/HEMATOLOGY/COAGULATION: Monitor for s/s of bleeding Monitor hemoglobin, coagulation studies as needed SKIN: Pressure ulcer prevention per facility protocol Specialty mattress ORTHO/REHAB: Continue PT/OT Prophylaxis: Continue GI and DVT prophylaxis Code Status: Full Resuscitation Disposition: TBD Other: Total patient care time exceeds 49 minutes excluding all procedures. ARTEMIO CEDENO Apr 13, 2024 14:48
[2024-04-13] MEDS: hydroMORPHone 0.5 MG SYG (0.5MG/0.5ML) IVP PRN (14:49)
[2024-04-13] MEDS: levoFLOXacin 250 MG/D5W 50ML 50 ML IVPB SCH (14:59)
[2024-04-13] MEDS: WARFARIN SODIUM 2 MG TAB PO SCH (20:10)
[2024-04-13] MEDS: ondanSETRON 4MG INJ IVP PRN (20:12)
[2024-04-14] VITALS (9 sets, daily range): BP systolic 109–125; BP diastolic 49–71; PULSE 71–88; RESP 16–18; TEMP 97.5–98.6; O2SAT 100
[2024-04-14 04:43] LABS: MEAN CORPUSCULAR HGB CONC 33.2 g/dL (32.0-36.0); MEAN CORPUSCULAR VOLUME 87.2 fL (79-99); RED BLOOD CELL COUNT(AUTO) 3.9 MIL/uL (4.00-5.50); RED CELL DISTRIBUTION WIDTH 14.5 % (11.0-15.5)
[2024-04-14 04:50] LABS: CREATININE 0.8 mg/dL (0.5-1.0); POTASSIUM 3.5 mmol/L (3.5-5.1)
[2024-04-14 08:50] LABS: BILIRUBIN,DIRECT 0.1 mg/dL (0.0-0.3); BILIRUBIN,TOTAL 0.7 mg/dL (0.2-1.0); TOTAL PROTEIN, SERUM 6.4 g/dL (6.0-8.3)
--- NOTE | 2024-04-14 10:59 | PN ---
tolerating po h/h stable on coumadin surgically clear for d/c fu 1 week low fat diet Vitals/Labs Vital Signs Date Time Temp Pulse Resp B/P (MAP) Pulse Ox O2 Delivery O2 Flow Rate FiO2 04/14/24 08:00 98.6 83 16 117/54 95 Room Air 04/14/24 07:30 0 21 Laboratory Tests 04/14/24 03:47 Medications Current Medications Pantoprazole Sodium 40 mg ONCE ONCE IVP Last administered on 04/09/24at 21:26; Start 04/09/24 at 18:30; Stop 04/09/24 at 18:31; Status DC Nitroglycerin 1 inch ONCE ONCE TD Last administered on 04/09/24at 21:27; Start 04/09/24 at 18:30; Stop 04/09/24 at 18:31; Status DC Aspirin 325 mg ONCE ONCE PO Last administered on 04/09/24at 21:26; Start 04/09/24 at 18:30; Stop 04/09/24 at 18:31; Status DC Insulin Human Regular 5 unit ONCE ONCE IV Last administered on 04/09/24at 21:29; Start 04/09/24 at 20:30; Stop 04/09/24 at 20:31; Status DC Sodium Chloride 1,000 ml @ 200 mls/hr Q5H IV Last administered on 04/10/24at 09:32; Start 04/09/24 at 23:30; Stop 04/10/24 at 11:30; Status DC Acetaminophen 650 mg Q6H PRN PO Last administered on 04/10/24at 17:36; Start 04/09/24 at 23:30; Stop 05/09/24 at 23:29 Acetaminophen 650 mg Q6H PRN RC; Start 04/09/24 at 23:30; Stop 05/09/24 at 23:29 Lactulose 20 gm Q6H PRN PO; Start 04/09/24 at 23:30; Stop 05/09/24 at 23:29 Docusate Sodium 100 mg BID PRN PO; Start 04/09/24 at 23:30; Stop 05/09/24 at 23:29 Temazepam 15 mg HS PRN PO Last administered on 04/12/24at 23:01; Start 04/09/24 at 23:30; Stop 05/09/24 at 23:29 Ondansetron HCl 4 mg Q6H PRN IVP Last administered on 04/14/24at 07:52; Start 04/09/24 at 23:30; Stop 05/09/24 at 23:29 Hydralazine HCl 10 mg Q2H PRN IV; Start 04/09/24 at 23:30; Stop 05/09/24 at 23:29 Hydromorphone HCl 0.5 mg Q4H PRN IVP Last administered on 04/14/24at 07:52; Start 04/09/24 at 23:30; Stop 04/14/24 at 23:29 Insulin Human Regular INSULIN SLIDING SCAL... ACHS SQ Last administered on 04/13/24at 20:15; Start 04/10/24 at 07:30; Stop 05/10/24 at 07:29 Piperacillin Sod/ Tazobactam Sod 3.375 gm Q8H IVPB Last administered on 04/11/24at 06:07; Start 04/10/24 at 09:00; Stop 04/11/24 at 07:45; Status DC Sodium Chloride 50 ml AD IV; Start 04/10/24 at 09:00; Stop 04/11/24 at 07:45; Status DC Potassium Chloride 100 ml @ 50 mls/hr AD PRN IV; Start 04/10/24 at 10:00; Stop 04/10/24 at 10:15; Status DC Magnesium Sulfate 50 ml @ 0 mls/hr PROTOCOL PRN IV Last administered on 04/10/24at 15:00; Start 04/10/24 at 10:00; Stop 05/10/24 at 09:59 Potassium Chloride 100 ml @ 100 mls/hr AD PRN IV; Start 04/10/24 at 10:30; Stop 05/10/24 at 10:29 Potassium Chloride 20 meq AD PRN PO Last administered on 04/10/24at 22:37; Start 04/10/24 at 10:30; Stop 05/10/24 at 10:29 Potassium Chloride 20 meq AD PRN PO; Start 04/10/24 at 10:30; Stop 05/10/24 at 10:29 Heparin Sodium/ Dextrose 250 ml @ 0 mls/hr Q6H IV Last administered on 04/11/24at 18:13; Start 04/10/24 at 11:30; Stop 04/13/24 at 15:05; Status DC Piperacillin Sod/ Tazobactam Sod 3.375 gm Q8H IVPB Last administered on 04/12/24at 05:21; Start 04/11/24 at 14:00; Stop 04/12/24 at 13:29; Status DC Levofloxacin/ Dextrose 100 ml @ 100 mls/hr ONCE ONCE IV Last administered on 04/12/24at 13:49; Start 04/12/24 at 13:30; Stop 04/12/24 at 14:29; Status DC Levofloxacin/ Dextrose 50 ml @ 50 mls/hr Q24H IVPB Last administered on 04/13/24at 14:59; Start 04/13/24 at 14:00; Stop 04/22/24 at 13:59 Warfarin Sodium 5 mg ONCE ONCE PO; Start 04/13/24 at 10:30; Stop 04/13/24 at 10:31; Status DC Lidocaine HCl 100 mg STK-MED ONCE .ROUTE; Start 04/13/24 at 11:13; Stop 04/13/24 at 11:13; Status DC Propofol 200 mg STK-MED ONCE IV; Start 04/13/24 at 11:13; Stop 04/13/24 at 11:13; Status DC Rocuronium [place] 50 mg STK-MED ONCE .ROUTE; Start 04/13/24 at 11:13; Stop 04/13/24 at 11:13; Status DC Fentanyl Citrate 100 mcg STK-MED ONCE .ROUTE; Start 04/13/24 at 11:13; Stop 04/13/24 at 11:14; Status DC Acetaminophen 100 ml @ As Directed STK-MED ONCE .ROUTE; Start 04/13/24 at 11:15; Stop 04/13/24 at 11:15; Status DC Famotidine 20 mg STK-MED ONCE IV; Start 04/13/24 at 11:15; Stop 04/13/24 at 11:15; Status DC Bupivacaine HCl 5 mg STK-MED ONCE .ROUTE Last administered on 04/13/24at 00:00; Start 04/13/24 at 11:34; Stop 04/13/24 at 11:34; Status DC Cefazolin Sodium 1 gm STK-MED ONCE .ROUTE Last administered on 04/13/24at 12:14; Start 04/13/24 at 12:03; Stop 04/13/24 at 12:03; Status DC Dexamethasone Sodium Phosphate 10 mg STK-MED ONCE .ROUTE; Start 04/13/24 at 12:10; Stop 04/13/24 at 12:10; Status DC Ondansetron HCl 4 mg STK-MED ONCE .ROUTE; Start 04/13/24 at 12:10; Stop 04/13/24 at 12:11; Status DC Phenylephrine HCl 10 mg STK-MED ONCE IV; Start 04/13/24 at 12:22; Stop 04/13/24 at 12:23; Status DC Glycopyrrolate 1 mg STK-MED ONCE .ROUTE; Start 04/13/24 at 12:59; Stop 04/13/24 at 12:59; Status DC Neostigmine Methylsulfate 10 mg STK-MED ONCE IV; Start 04/13/24 at 12:59; Stop 04/13/24 at 12:59; Status DC Morphine Sulfate 4 mg STK-MED ONCE .ROUTE Last administered on 04/13/24at 13:45; Start 04/13/24 at 13:33; Stop 04/13/24 at 13:34; Status DC Warfarin Sodium 2 mg QSUMOTUWEFRSA@2100 PO Last administered on 04/13/24at 20:10; Start 04/13/24 at 21:00; Stop 04/20/24 at 20:59 Warfarin Sodium 4 mg QTH@2100 PO; Start 04/15/24 at 21:00; Stop 04/22/24 at 20:59 ROMAN ECHEVARRIA MD Apr 14, 2024 10:59
[2024-04-14] MEDS: HYDROcodone/APAP 5/325 1 TAB TABLET PO PRN (11:36)
[2024-04-14] MEDS: doCUSate SODIUM 100 MG CAP PO PRN (15:49)
--- NOTE | 2024-04-14 16:10 | PN ---
[facility] PROGRESS NOTE Date Patient Seen: Apr 14, 2024 Time of Visit: 16:08 Supervising Physician: Dr. Richar Swann Primary Care Physician: Dr. Kalli Navas- [facility] Outpatient Specialists: Jamie Shaver, Dr. Summers Inpatient Consults: Dr. Hays PROBLEM LIST: Acute abdominal pain secondary to below Acute cholelithiasis -s/p lap william performed on 04/13/2024 Acute pancreatitis secondary to biliary stones Acute transaminitis secondary to above Acute complicated cystitis, klebsiella ozaenae on urine culture Chronic anticoagulation with coumadin with supra therapeutic INR, converted to heparin drip Hypertension Hypokalemia Hyperglycemia Hypomagnesemia hx of mitral valvulopathy s/p mechanical mitral valve replacement on coumadin History of diabetes mellitus, hyperlipidemia, hypertension, bilateral mastectomy Plan: Start heparin postoperatively, 1st dose of Coumadin tonight at home dose Stop zosyn, start levaquin for 5 days Lap william in AM, stop hep gtt at midnight Resume hep drip post op when cleared with surgeon Needs therapeutic INR 2.5-3.5 prior to DC heparin bridge with warfarin post op Disposition TBD INTERVAL HISTORY: Patient evaluated at bedside today following her lap william procedure which was performed yesterday. was present at the time of visit. Patient is resting comfortably, she does not appear to be in any acute distress, states that her pain at this time as a 5/5 located in the right upper quadrant and epigastric region. Advised patient that this is normal pain however we will provide changes to pain management regimen as needed. Patient was started on Coumadin yesterday by Cardiology for her prosthetic valve. White count today is 11, hemoglobin stable at 11.3. Her renal function is within normal limits. She continues on Levaquin at this time. We will continue to monitor her progress, she has been cleared by surgery today however we will evaluate her for 1-2 more days following LFTs to ensure resolution. REVIEW OF SYSTEMS: General: No Fever, No Chills, No Night Sweats, No Fatigue, No Malaise, No Appetite HEENT: No Head Aches, No Visual Changes, No Eye Pain, No Ear Pain, No Dysphasia, No Sinus Congestion, No Post Nasal Drip, No Sore Throat Pulmonary: No Dyspnea; No Cough, No Pleuritic Chest Pain Cardiovascular: No: Chest Pain, Palpitations, Orthopnea, Paroxysmal Noc. Dyspnea, Edema, Lt Headedness Gastrointestinal: No: Nausea, Vomiting, yes Abdominal Pain,no Diarrhea, Constipation, Melena, Hematochezia Genitourinary: No Dysuria, No Frequency, No Incontinence, No Hematuria, No Retention Musculoskeletal: No: other, neck pain, shoulder pain, arm pain, back pain, hand pain, leg pain, foot pain Skin: No Urticaria, No Rash Neurological: No: Weakness, Numbness, Incoordination, Change in speech, Confusion, Seizures PHYSICAL EXAM: GENERAL: alert, weak, awake oriented x 3 HEENT: EOMI, Sclera non icteric, moist mucosa NECK: Supple, no JVD, trachea midline LUNGS: Clear breath sounds bilaterally. No wheezes HEART: Regular rate and rhythm. Normal S1 and S2, without murmurs ABD: Abdomen soft, tender to touch to right upper quadrant. Bowel sounds present EXT: No clubbing cyanosis or edema NEURO: Alert and oriented to person, follows commands Vital Signs (last 8hr) Date Time Temp Pulse Resp B/P (MAP) Pulse Ox O2 Delivery O2 Flow Rate FiO2 04/14/24 12:00 97.5 87 16 117/49 98 Room Air 04/14/24 11:09 86 04/14/24 11:09 86 TELE LABS: Hematology Labs: Test 04/14/24 03:47 04/13/24 06:10 Range/Units White Blood Count 11.0 H 4.8-10.8 K/uL Red Blood Count 3.90 L 4.00-5.50 MIL/uL Hemoglobin 11.3 L 12.0-16.0 g/dL Hematocrit 34.0 L 36-48 % Mean Corpuscular Volume 87.2 79-99 fL Mean Corpuscular Hemoglobin 29.0 27.0-33.0 pg Mean Corpuscular Hemoglobin Concent 33.2 32.0-36.0 g/dL Red Cell Distribution Width 14.5 11.0-15.5 % Platelet Count 170 130-400 K/uL Mean Platelet Volume 11.8 H 7.5-10.5 fL Nucleated Red Blood Cells 0.0 0.0-0.19 % Immature Granulocyte % (Auto) 0.3 0-1 % Neutrophils (%) (Auto) 77.0 40.0-77.0 % Lymphocytes (%) (Auto) 11.9 L 21.0-51.0 % Monocytes (%) (Auto) 6.6 3.0-13.0 % Eosinophils (%) (Auto) 3.8 0.0-8.0 % Basophils (%) (Auto) 0.4 0.0-5.0 % Neutrophils # (Auto) 7.4 1.8-7.7 K/uL Lymphocytes # (Auto) 1.2 1.0-4.8 K/uL Monocytes # (Auto) 0.6 0.1-1.0 K/uL Eosinophils # (Auto) 0.37 0.00-0.70 K/uL Basophils # (Auto) 0.04 0.00-0.20 K/uL Absolute Immature Granulocyte (auto 0.03 0-1 K/uL Chemistry Labs: Test 04/14/24 11:50 04/14/24 03:47 04/13/24 19:42 Range/Units Whole Blood Glucose 210 H 70-110 MG/DL Sodium Level 144 136-145 mmol/L Potassium Level 3.5 3.5-5.1 mmol/L Chloride Level 110 101-111 mmol/L Carbon Dioxide Level 21 21-32 mmol/L Blood Urea Nitrogen 8 7-18 mg/dL Creatinine 0.8 0.5-1.0 mg/dL Glomerular Filtration Rate Calc 79 >90 mL/min Random Glucose 151 H 70-105 mg/dL Total Calcium 7.5 L 8.5-10.1 mg/dL Total Bilirubin 0.7 0.2-1.0 mg/dL Direct Bilirubin 0.1 0.0-0.3 mg/dL Aspartate Amino Transf (AST/SGOT) 63 H 10-37 U/L Alanine Aminotransferase (ALT/SGPT) 37 # 12-78 U/L Alkaline Phosphatase 85 50-136 U/L Total Protein 6.4 6.0-8.3 g/dL Albumin 3.0 L 3.5-5.0 g/dL Bedside Glucose Comment Notified Nurse Coagulation Labs: Test 04/13/24 06:10 04/12/24 20:17 Range/Units Prothrombin Time 13.6 H 9.6-11.6 SEC Prothromb Time International Ratio 1.24 H 0.85-1.15 Activated Partial Thromboplast Time 48.7 H 26.3-35.5 SEC DIAGNOSTICS / RADIOLOGY RESULTS: [ ] PLAN NEURO: Minimize central acting medications as possible. Maintain fall precautions, adequate lighting during the day PULMONARY: Supplemental 02 as needed. Maintain aspiration precautions at all times CARDIOVASCULAR: Follow hemodynamics. Vital signs per facility protocol Hold Coumadin start patient on heparin drip GI & NUTRITION: Continue with nutritional support. Continue stool softeners and laxatives as needed. Consult to surgery MRCP Clear liquid diet Trend lipase and liver function KIDNEYS & ELECTROLYTES: Strict monitoring of intake, output and overall fluid balance. Avoid nephrotoxic medications to the extent possible. Medications to be dosed according to renal function. Monitor electrolytes and replace as needed per protocol ENDOCRINE: Maintain blood glucose between 100-180 at all times. Hypoglycemia protocol in place INFECTIOUS DISEASE: Trend temperature, WBC and procalcitonin level Follow cultures, deescalate antibiotics as soon as possible. Panculture if new onset fever Zosyn for now Continue to follow cultures of the urine and blood. ONCOLOGY/HEMATOLOGY/COAGULATION: Monitor for s/s of bleeding Monitor hemoglobin, coagulation studies as needed SKIN: Pressure ulcer prevention per facility protocol Specialty mattress ORTHO/REHAB: Continue PT/OT Prophylaxis: Continue GI and DVT prophylaxis Code Status: Full Resuscitation Disposition: TBD Other: Total patient care time exceeds 49 minutes excluding all procedures. ARTEMIO CEDENO Apr 14, 2024 16:10
[2024-04-14] MEDS: metOPROLol sucCINATE 25 MG TAB.SR.24H PO SCH (17:30)
[2024-04-14] MEDS: atorVAStatin 40 MG TABLET PO SCH (21:25)
[2024-04-15] VITALS: BP 115/62; PULSE 84; RESP 18; TEMP 98.5
[2024-04-15 04:52] VITALS: BP 115/62; PULSE 62; RESP 17; TEMP 98.1
[2024-04-15 04:53] LABS: HEMATOCRIT 33.8 % (36-48); MEAN CORPUSCULAR HEMOGLOBIN 29.6 pg (27.0-33.0); MEAN CORPUSCULAR HGB CONC 32.8 g/dL (32.0-36.0); MEAN CORPUSCULAR VOLUME 90.1 fL (79-99); RED BLOOD CELL COUNT(AUTO) 3.75 MIL/uL (4.00-5.50); RED CELL DISTRIBUTION WIDTH 14.8 % (11.0-15.5); WHITE BLOOD COUNT (AUTO) 7.9 K/uL (4.8-10.8)
[2024-04-15 05:10] LABS: ALBUMIN 2.8 g/dL (3.5-5.0); BILIRUBIN,TOTAL 0.9 mg/dL (0.2-1.0); CREATININE 0.9 mg/dL (0.5-1.0); POTASSIUM 3.3 mmol/L (3.5-5.1)
[2024-04-15] MEDS: PoTASSium chloRIDE 20MEQ ER 20 MEQ ERTAB PO PRN (06:33)
[2024-04-15 08:00] VITALS: BP 129/65; PULSE 84; RESP 18; TEMP 98.1; O2SAT 97
[2024-04-15] MEDS ORDERED: metOPROLol sucCINATE 25 MG TAB.SR.24H PO SCH (09:00)
[2024-04-15 12:00] VITALS: BP 129/64; PULSE 90; RESP 18; TEMP 98.1
[2024-04-15 16:00] VITALS: BP 116/59; PULSE 84; RESP 18; TEMP 98.3
--- NOTE | 2024-04-15 18:14 | NUR ---
DISCHARGE Gave patient printed discharged paperwork, educated patient regarding follow up visits, medications, diet/activity. answered pt questions, patient understood. advised pt to call surgeon's office tomorrow for follow up appointment since i was unable to schedule (after 5pm). provided pt with phone number
[2024-04-15] MEDS ORDERED: WARFARIN SODIUM 2 MG TAB PO SCH (21:00)
--- NOTE | 2024-04-15 22:17 | DS ---
[facility] DISCHARGE SUMMARY Date Patient Seen: Apr 15, 2024 Time of Visit: 22:10 Supervising Physician: Dr. Richar Swann Primary Care Physician: Dr. Kalli Navas- [facility] Outpatient Specialists: Jamie Shaver, Dr. Summers Inpatient Consults: Dr. Hays [facility] COURSE: HPI (per admitting provider) This is a 73-year-old female with past medical history of mechanical valve surgeries on Coumadin, bilateral mastectomy, diabetes mellitus, hypertension, and hyperlipidemia who came to the hospital with complaint of abdominal pain. According to the patient, she has been having this symptom for two days. Her pain was described as dull rate 3/10, unrelieved with tylenol. She had no vomiting. She denies any diarrhea. In ED patient was found to have cholelithiasis with common bile duct mildly dilated. Liver function was elevated and she has elevated lipase as well. Her urine analysis with WBC of 50 to 100 very high leukocyte esterase and many bacteria. The patient was treated for the following problems: ACTIVE PROBLEM LIST FOR THE HOSPITALIZATION: Acute cholelithiasis -s/p lap william performed on 04/13/2024 Acute pancreatitis secondary to biliary stones, resolved Acute transaminitis secondary to above, resolved Acute complicated cystitis, klebsiella ozaenae on urine culture, continues on outpatient antibiotic Chronic anticoagulation with coumadin with supra therapeutic INR, converted to heparin drip resumed on home dose Coumadin Hypertension Hypokalemia Hyperglycemia Hypomagnesemia CHRONIC PROBLEMS: continue previous management per PCP unless otherwise indicated hx of mitral valvulopathy s/p mechanical mitral valve replacement on coumadin History of diabetes mellitus, hyperlipidemia, hypertension, bilateral mastectomy [employer] FINDINGS/RECOMMENDATIONS: [ ] PROCEDURES: as mentioned above DISCHARGE MEDICATIONS: Pt hemodynamically stable and afebrile at time of discharge. PCP notified of patients admission, hospital course and discharge. PHYSICAL EXAM: GENERAL: alert, weak, awake oriented x 3 HEENT: EOMI, Sclera non icteric, moist mucosa NECK: Supple, no JVD, trachea midline LUNGS: Clear breath sounds bilaterally. No wheezes HEART: Regular rate and rhythm. Normal S1 and S2, without murmurs ABD: Abdomen soft, tender to touch to right upper quadrant. Bowel sounds present EXT: No clubbing cyanosis or edema NEURO: Alert and oriented to person, follows commands FOLLOW-UP: Follow-up with PCP in 2-3 days RECOMMENDATIONS: See Discharge Instructions This case was seen and discussed with my supervising physician. More than 30 minutes spent on discharge process, including evaluation of the patient, discussion with nursing staff, medication reconciliation and follow-up appointments ARTEMIO CEDENO Apr 15, 2024 22:17
== END 2024-04-15 19:10 | disposition home or self-care (01) | DRG 417 ==
LOC: EDH 17:36 → OBSVTOIN 22:51 → EDHIP 22:51 → 2BH 04-10 06:26 → 4BH 04-11 05:43
PROVIDERS: ADMIT Internal Medicine; ATTEND Internal Medicine
PROC: 0FT44ZZ Resection of Gallbladder, Percutaneous Endoscopic Approach (ICD-10-PCS; principal; 2024-04-13 12:00)
DX: K80.12 Calculus of gallbladder with acute and chronic cholecystitis without obstruction (principal); K85.10 Biliary acute pancreatitis without necrosis or infection; N30.00 Acute cystitis without hematuria; R74.01 Elevation of levels of liver transaminase levels; E87.6 Hypokalemia; E11.65 Type 2 diabetes mellitus with hyperglycemia; E83.42 Hypomagnesemia; B96.1 Klebsiella pneumoniae [K. pneumoniae] as the cause of diseases classified elsewhere; E78.00 Pure hypercholesterolemia, unspecified; I34.0 Nonrheumatic mitral (valve) insufficiency; I10 Essential (primary) hypertension; Z79.84 Long term (current) use of oral hypoglycemic drugs; Z95.2 Presence of prosthetic heart valve; Z79.01 Long term (current) use of anticoagulants; Z79.899 Other long term (current) drug therapy; Z85.3 Personal history of malignant neoplasm of breast; Z90.13 Acquired absence of bilateral breasts and nipples; Z92.21 Personal history of antineoplastic chemotherapy
CPT/HCPCS: 36415; 71045; 74181; 76705; 80048; 80053; 80076; 81001; 82550; 82948; 83690; 83735; 83880; 84100; 84443; 84478; 84484; 85025; 85027; 85610; 85730; 86850; 86900; 86901; 87086; 87186; 93005; 93306; 96374; 99285; G0378; J0690; J1100; J1171; J1644; J1815; J1956; J2003; J2270; J2371; J2405; J2470; J2543; J2704; J2710; J3010; J3475; J3490; J7030; A4215; A4600; A4649; A6206; C1769; J0665; S8037

== ENCOUNTER → 2024-10-12 | Outpatient (CLI) | payer OTHER, MEDICARE ==
--- NOTE | 2024-10-20 16:55 | HMCIMG ---
STUDY PERFORMED: BD Bone Density DEXA Axial Skeleton TECHNIQUE: [employer] X-ray absorptiometry (DEXA) COMPARISON: None available. FINDINGS: Lumbar Spine L1-L4 Density(g/cm2): 0.968 T-score: -0.7 Z-score: 1.5 Left Femoral Neck Density(g/cm2): 0.693 T-score: -1.5 Z-score: 0.4 Total Proximal Femur Density(g/cm2): 0.868 T-score: -0.7 Z-score: 0.9 INTERPRETATION: The bone mineral density in the lumbar spine is in the normal range. The bone mineral density of the left hip is in the osteopenia range. COMMENTS: T-scores are a means of evaluating bone mineral density relative to young adult population and are defined as the number of standard deviations of the mean. T-scores at or above -1.0 are considered normal. T-scores between -1.0 and -2.5 are consistent with osteopenia. T-scores at or below -2.5 are consistent with osteoporosis. T-score values below -2.0 are thought to be associated with an increased risk of fracture. Z-scores are related to age-matched controls. The study does not distinguish osteoporosis from other causes of decreased bone density such as osteomalacia or multiple myeloma. Therefore, if clinically indicated or Z-scores are less than -2.0, additional metabolic studies may be appropriate. RECOMMENDATIONS: National Osteoporosis Foundation (NOF) guidelines recommend initiating therapy to reduce fracture risk in women with BMD: T-Score below -2 SD T-Score Below -1.5 with other risks factors present NOF guidelines recommend all people with T score of -2.5 and below (osteoporosis) consider taken osteoporosis medication. The NOF recommends adults under age 50 need 1,000 mg of calcium and 400-800 IU of vitamin D daily. Adults 50 and over need 1,200 mg of calcium and 800-1000 IU of vitamin D daily. Effective therapies for the prevention of osteoporosis include bisphosphonates (Fosamax and Actonel) and Evista. Hormone therapy may be an option based on review of risks and benefit of treatment. People with diagnosed cases of osteoporosis or at high risk for fracture should have regular bone mineral density tests. For patients eligible for Medicare, routine testing is allowed once every 2 years. The testing frequency can be increased to one year for patients who have rapidly progressing disease, those who are receiving or discontinuing medical therapy to restore bone mass, or have additional risk factors. /[email or web address]
== END | disposition home or self-care (01) ==
LOC: RAH 08:35
PROVIDERS: ATTEND Family Medicine
DX: M81.0 Age-related osteoporosis without current pathological fracture (principal); M85.852 Other specified disorders of bone density and structure, left thigh
CPT/HCPCS: 77080